=== PATIENT | female | born 1945 | race Caucasian/White ===

== ENCOUNTER → 2020-07-16 08:42 | Outpatient (BNVA) | payer MEDICARE, SELFPAY | PROVIDERS: PCP Internal Medicine; Referring Provider Internal Medicine; Visit Provider Student in an Organized Health Care Education/Training Program | DX: M79.7 Fibromyalgia (principal); Z79.1 Long term (current) use of non-steroidal anti-inflammatories (NSAID) | CPT/HCPCS: 99212 ==

== ENCOUNTER 2020-10-16 11:35 | Outpatient (REF) | payer MEDICARE, SELFPAY ==
[2020-10-16 13:12] LABS: Alanine Aminotransferase 14 U/L (0-31); Alkaline Phosphatase 89 U/L (39-117); Anion Gap 14 (12-20); Aspartate Amino Transferase 14 U/L (5-31); Bilirubin Total 0.3 mg/dL (0.0-1.0); Blood Urea Nitrogen 19 mg/dL (9-16); Calcium 9.6 mg/dL (8.4-10.2); Carbon Dioxide 26 mmol/L (22-29); Chloride 106 mmol/L (96-108); Estimated Glomerular Filt Rate > 60; Glucose Random 79 mg/dL (60-115); Potassium 4.7 mmol/l (3.3-5.1); Sodium 141 mmol/L (135-145); Total Protein 6.8 g/dL (6.5-8.0)
== END 2020-10-16 11:36 | disposition home or self-care (01) ==
LOC: HO.LAB 11:35
PROVIDERS: Visit Provider Student in an Organized Health Care Education/Training Program
DX: M79.7 Fibromyalgia (principal)
CPT/HCPCS: 36415; 80053

== ENCOUNTER → 2021-07-03 09:36 | Outpatient (BNVA) | payer MEDICARE, SELFPAY | PROVIDERS: PCP Internal Medicine; Visit Provider Nurse Practitioner Family | DX: M79.7 Fibromyalgia (principal) | CPT/HCPCS: Q3014 ==

== ENCOUNTER → 2022-06-12 10:54 | Outpatient (BNVA) | payer MEDICARE, SELFPAY | PROVIDERS: PCP Internal Medicine Gastroenterology; Visit Provider Student in an Organized Health Care Education/Training Program | DX: M79.7 Fibromyalgia (principal) | CPT/HCPCS: 99212 ==

== ENCOUNTER 2023-06-14 10:30 | Outpatient (AMB) | payer MEDICARE, SELFPAY ==
--- NOTE | 2023-06-14 10:41 | MHC.OFFVIS ---
Intake Vital Signs 06/14/23 10:54 Height 5 ft 2 in Weight 202 lb 9.677 oz BMI 37.1 BP 128/72 Blood Pressure Location Rt brachial Position Sitting Pulse 75 Pulse Source Pulse Oximeter Temp 97.2 F Temp Source Skin Pulse Oximetry (%) 93 Intake Visit Reasons: FM Intake Note: Pt seen today for FM follow up. 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 Accompanied by: Self / Same As Patient Allergies penicillin V Allergy (Unknown, Verified 06/14/23 11:00) Rash Sulfa (Sulfonamide Antibiotics) Allergy (Unknown, Verified 06/14/23 11:00) Rash Tetanus Toxoid Adsorbed Allergy (Unknown, Uncoded 06/14/23 11:00) Unknown Medication List - Last Reconciled 06/14/23 by Dannie Pfeiffer MD amitriptyline 20 mg PO BID amlodipine 5 mg PO DAILY aspirin (Adult Low Dose Aspirin) 81 mg PO DAILY citalopram 20 mg PO DAILY diclofenac sodium 1% (Voltaren) 2 grams topical QID donepezil 10 mg PO BEDTIME esomeprazole magnesium 40 mg PO DAILY linaclotide (Linzess) mcg PO memantine 10 mg PO BID mirabegron ER (Myrbetriq) 50 mg PO DAILY quetiapine 150 mg PO DAILY ropinirole 3 mg PO DAILY HPI HPI Comments History of Present Illness Details 78-year-old female with fibromyalgia returns for follow-up. Continues to have diffuse pain all the time, the majority of her pain is in her mid to lower back. She states that she was started on a medication by her psychiatrist and it helps her sleep. She does not know the name of the medication. She continues to do some light exercises at home. She stays active and [facility] to the [facility]. Initial history: This is a 77-year-old female with a past medical history of Astasia abasia, degenerative disc disease of the spine s/p lumbar surgery and fibromyalgia who was here for follow-up of fibromyalgia. Patient was on gabapentin in the past and he was stopped when patient had COVID due to elevated ammonia levels. Patient currently does not know her medications. She continues to have diffuse in her entire spine, radiating to her legs. She also has multiple areas of joint pain including her arms and chest. She has difficulty walking, has severe fatigue and stays in bed for long periods of time. She gets about 3-4 hours of deep sleep nightly and does not wake up refreshed. She thinks she snores at night. Never had a sleep study [facility] Medical History Fibromyalgia Surgical History History of lumbar surgery History of knee surgery H/O shoulder surgery H/O mastectomy History of cholecystectomy Hx of appendectomy Social History Alcohol intake: never Patient Tobacco Use Status: Never used Tobacco e-Cigarette/Vaping Use: Never Used Review of Systems Const Reports fatigue and Reports weakness Musc Reports abnormal gait, Reports arthralgias, Reports muscle weakness and Reports stiffness Skin/Breast Reports photosensitivity Neuro Reports abnormal gait and Reports weakness Endo Reports fatigue Physical Exam Vital Signs: Last Vital Signs Temp 97.2 F 06/14/23 10:54 Pulse 75 06/14/23 10:54 BP 128/72 06/14/23 10:54 Pulse Ox 93 06/14/23 10:54 BMI result Body Mass Index 37.1 Const General: cooperative, healthy appearing, comfortable and no acute distress Nutritional Appearance: obese Orientation/consciousness: patient oriented x3 Limitations: ambulation with cane HEENT Head: Yes normocephalic and Yes atraumatic Resp Effort & Inspection: normal respiratory effort and able to speak in complete sentences Auscultation: clear to auscultation bilaterally Neuro General: patient oriented x3 Extrem Other: Osteoarthritic changes of hands with no synovitis, normal nailfold capillaroscopy Numerous fibromyalgia tender points Walks with a cane with unsteady gait Positive straight leg raise test bilaterally Assessment & Plan Assessment & Plan (1) Fibromyalgia: Code(s): M79.7 - Fibromyalgia Plan: 78-year-old female with fibromyalgia returns for follow-up. Continues to be about the same. Little better overall. Sleeping better after being prescribed a medication by her psychiatrist. She does not know the name of the medication. Continues to stay active and goes to the senior center most days. the majority of her pain stems from her spine. She was told by pain management and spine surgeon that she is not a candidate for a stimulator or any further operative intervention. Patient does not know her meds. Gabapentin seems to have been discontinued due to elevated ammonia levels. Advised patient to try using [id number] Salonpas patches for her back pain. Continue to stay active. Follow-up as need Plan I spent 15 minutes reviewing patient's chart, evaluating patient, counseling patient and documenting in the chart Coding Level of Care Code Est Pt Level 3 (67465) Diagnoses Fibromyalgia M79.7
[2023-06-14 10:54] VITALS: BP 128/72; PULSE 75; TEMP 36.2; O2SAT 93; BMI 37.1
== END 2023-06-14 11:43 | disposition home or self-care (01) ==
PROVIDERS: PCP Internal Medicine Gastroenterology; Visit Provider Student in an Organized Health Care Education/Training Program
DX: M79.7 Fibromyalgia (principal)
CPT/HCPCS: 99213

== ENCOUNTER → 2023-06-14 10:30 | Outpatient (BNVA) | payer MEDICARE, SELFPAY | PROVIDERS: PCP Internal Medicine Gastroenterology; Visit Provider Student in an Organized Health Care Education/Training Program | DX: M79.7 Fibromyalgia (principal) | CPT/HCPCS: 99212 ==

== ENCOUNTER 2025-05-07 11:12 | Outpatient (AMB) | payer MEDICARE, SELFPAY ==
[2025-05-07 11:13] VITALS: BP 129/63; PULSE 74; RESP 16; O2SAT 94; BMI 34.9
--- NOTE | 2025-05-07 11:13 | MHC.OFFVIS ---
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 The back pain has been persistent since a spinal fusion surgery in 2013, performed in [place], which involved the lower back extending to the middle region. The pain is described as severe, with a current intensity of 8 out of 10, and radiates to both legs, more prominently on the left side, causing significant discomfort day and night. The patient has a history of fibromyalgia, which contributes to her overall pain experience. She has undergone knee surgery on the right side and uses a cane, wheelchair, or walker for mobility due to the exacerbation of pain with walking. The patient has been prescribed oxycodone for pain management, which she has been taking for the past two months, although it does not fully alleviate her pain. She previously tried gabapentin, but it was discontinued due to elevated ammonia levels. The patient reports that her pain is constant, burning, stabbing, and sharp, with associated numbness and tingling, affecting her daily activities and quality of life. The patient also experiences anxiety and depression, for which she consults a Psychiatrist via phone every two months. She has been living with chronic pain since her first back surgery in 1980 and has tried various therapies, including physical therapy, acupuncture, and career development coordinator, with limited relief. - Onset: Persistent since spinal fusion surgery in 2013 - Quality: Constant, burning, stabbing, sharp, numbness, tingling - Location: Lower back, radiating to both legs, more on the left - Exacerbating factors: Walking, standing - Relieving factors: None mentioned - Interference: Affects daily activities, mobility, mood, quality of life - Affect: Pain impacts mood and psychological wellbeing, contributing to anxiety and depression - Analgesia: Currently using oxycodone, pain level at 8/10, goal pain level not specified - Adverse Effects: None reported from current medication - Activities of Daily Living: Pain affects daily activities, mobility, and quality of life - Aberrant Drug Related Behaviors: None reported [facility] Medical History Fibromyalgia Surgical History History of lumbar surgery History of knee surgery H/O shoulder surgery H/O mastectomy History of cholecystectomy Hx of appendectomy Social History Alcohol intake: never Patient Tobacco Use Status: Never used Tobacco e-Cigarette/Vaping Use: Never Used Review of Systems Const Details: - Musculoskeletal: Reports chronic back pain, shoulder pain, knee pain, foot pain - Neurological: Reports numbness and tingling in legs - Psychiatric: Reports anxiety and depression - Endocrine: Denies diabetes All systems reviewed & are unremarkable except as noted in HPI and below Physical Exam Vital Signs: Last Vital Signs Pulse 74 05/07/25 11:13 Resp 16 05/07/25 11:13 BP 129/63 05/07/25 11:13 Pulse Ox 94 05/07/25 11:13 Oxygen Delivery Method Room Air 05/07/25 11:13 BMI result Body Mass Index 34.9 General: Appears afebrile. Alert and oriented. Mood and affect appropriate. Follows and participates in conversation appropriately. Respiratory effort is unlabored. No cough. Able to transition from sit to stand unassisted. Difficulty to get up from sitting to standing. Ambulates with bilaterally normal heel strike and toe off. Uses cane with ambulation. General: Yes no CVA tenderness Back/Spine/Pelvis Other: Limited lumbar ROM due to pain. Lumbar flexion and extension reproduces moderate pain. Demonstrates 5/5 strength of quadriceps bilaterally as well as flexion/dorsiflexion of bilateral feet against resistance. 2+ pedal pulses bilaterally. Straight leg rise with dorsiflexion positive bilaterally, left>right. +1 patellar and achilles reflexes bilaterally. Facet loading test positive bilaterally. Michael?s and Stinchfield tests are positive bilaterally. No groin pain with I/E hip rotations. Valsalva maneuver negative. Multiple widespread TTPs bilaterally, including upper and lower extremities. Back: no CVA tenderness Cervical Spine: cervical ROM normal, cervical muscular tenderness and No Cervical spine tenderness Thoracic/Lumbar Spine: thoracic and lumbar spine normal to inspection, Thoracic/lumbar spine scar(s), Lasegue's sign positive bilateral and diffuse, pain with thoraco-lumbar ROM, paraspinal muscle tenderness, thoraco-lumbar ROM limited, No thoracic spinal tenderness and lumbar spinal tenderness at L4 and at L5 Sacroiliac joints: bilaterally tender to palpation Results Reviewed Results Reviewed: Assessment & Plan Assessment & Plan (1) Lumbar post-laminectomy syndrome: Code(s): M96.1 - Postlaminectomy syndrome, not elsewhere classified Category: Medical (2) Fibromyalgia: Code(s): M79.7 - Fibromyalgia Category: Medical (3) Chronic low back pain: Code(s): M54.50 - Low back pain, unspecified; G89.29 - Other chronic pain Category: Medical (4) Lumbar radiculopathy: Code(s): M54.16 - Radiculopathy, lumbar region Category: Medical (5) Lumbosacral spondylosis: Code(s): M47.817 - Spondylosis without myelopathy or radiculopathy, lumbosacral region Category: Medical Plan - Schedule a Caudal epidural steroid injection with catheter, with light sedation and fluoroscopy for lumbar post-laminectomy syndrome. Expectations, risks and benefits were reviewed. Patient is aware she will be contacted to schedule this procedure. - We also discussed neuromodulation with SCS trial and implant and radiofrequency ablation procedures. - Continue current pain management with oxycodone, monitor for efficacy and side effects. - Follow up with Psychiatrist for ongoing management of anxiety and depression as scheduled. All questions and concerns have been answered and patient agreed with the plan. Follow up after injection and sooner as needed. Patient was informed and verbally consented to the use of an ambient scribe for clinic note documentation during this visit. Coding Level of Care Code New Pt Level 4 (93783) Diagnoses Lumbar post-laminectomy syndrome M96.1 Fibromyalgia M79.7 Chronic low back pain M54.50; G89.29 Lumbar radiculopathy M54.16 Lumbosacral spondylosis M47.817
--- OUTSIDE RECORDS SUMMARY | 2025-05-07 11:55 | XMS_ITS | Clinical Summary ---
Author Organization [facility] Address [address] [place] [id number] Phone Care Team Providers Care Interior Wirer Name Role Phone Reji Wilde MD Primary Care Provider [phone] Allergies Active Allergy Reactions Criticality Noted Date Comments Penicillins Rash 02/15/2014 Sulfamethoxazole-Trimethoprim Unknown 2013 Tetanus Vaccines And Toxoid Rash 02/16/20 14 Medications citalopram (CELEXA) 20 MG tablet CITALOPRAM 20 MG TABLET; Dose: 20 MG; Form: Take 1 TABLET; Route: PO; Frequency: QD; Directions: Not available; Details: Dispense: Tablet(s); Taking; Status: Active; Source: SHANDA WILDE; Date: 03/01/2014 4 Active ALPRAZolam (XANAX) 0.25 MG tablet ALPRAZOLAM 0.25 MG TABLET; Dose: 0.25 MG; Form: Take 1 TABLET; Route: PO; Frequency: BID PRN; Directions: Not available; Details: Dispense: Tablet(s); Taking; Status: Active; Source: SHANDA WILDE; Date: 03/01/2014 4 Active aspirin 81 MG EC tablet ASPIRIN BUFFERED 81 MG TABLET; Dose: 81 MG; Form: Take 1 TABLET; Route: PO; Frequency: QD; Directions: Not available; Details: Dispense: Tablet(s); Taking; Status: Active; Source: SHANDA WILDE; Date: 03/01/2014 4 Active docusate sodium (COLACE) 100 MG capsule Take 100 mg by mouth 2 (two) times a day. Active multivitamin-mi nerals-lutein (CENTRUM SILVER) Tab Take 1 tablet by mouth daily. Active acetaminophen (TYLENOL) 500 MG tablet Take 500 mg by mouth every 6 (six) hours as needed for pain (specific location in comments). Active amLODIPine (NORVASC) 5 MG tablet Take 5 mg by mouth. 4 Active amitriptyline (ELAVIL) 10 MG tablet Take 30 mg by mouth nightly at bedtime. Active famotidine (PEPCID) 20 MG tablet Take 20 mg by mouth daily. 5 Active oxyCODONE-aceta minophen (PERCOCET) 5-325 mg per tablet Take 1 tablet by mouth daily as needed. 5 Active rOPINIRole (REQUIP) 3 MG tablet Take 3 mg by mouth nightly at bedtime. Active esomeprazole (NEXIUM) 40 MG capsule See Instructions, Take 1 capsule by mouth daily., # 30 capsule, 11 Refills, Maintenance, 07/03/24 12:12:00 PM EDT, PillPack by [facility], 159, cm, 06/28/24 10:30:00 EDT, Height, 90.7, kg, 08/25/23 11:33:00 EST, Dry Weight 4 Active memantine (NAMENDA) 10 MG tablet Take 10 mg by mouth 2 (two) times a day. Active MYRBETRIQ 50 mg Tb24 Take 50 mg by mouth daily. Active QUEtiapine 150 mg Tab take one tab by mouth at bedtime Active lactulose (CONSTULOSE) 10 gram/15 mL solution Take 15 mL by mouth daily. 5 Active donepeziL (ARICEPT) 10 MG tablet 10 mg daily. Active Active Problems Problem Noted Date Diagnosed Date Intractable abdominal pain 01/24/2025 Constipation 01/24/2025 Internal hemorrhoids without complication 2024 Abdominal bloating 01/24/2025 Degeneration of lumbar intervertebral disc 03/19 Overview (11/16/2014): Degeneration of lumbar intervertebral disc; intervertebral disc, Lumbar/Lumbosacral Disc Degeneration Kyphoscoliosis deformity of spine 03/19/2014 Overview (11/16/2014): Kyphoscoliosis deformity of spine; scoliosis, (and kyphoscoliosis), idiopathic Difficulty in walking 03/01/2014 Overview (11/16/2014): Walking disability Spinal stenosis 03/01/2014 Overview (11/16/2014): Spinal stenosis Encounters Date Type Department Care Team Description 04/09/2025 8:11 AM EDT Anesthesia Event [facility] Endoscopy Department [address] [place] [id number] Bradley Soler MD DirrFatmata NP 04/09/2025 8:10 AM EDT - 04/09/2025 8:50 AM EDT Surgery [facility] Endoscopy Department [address] [place] [id number] Stella Callejas MD, MPH COLONOSCOPY 04/09/2025 6:40 AM EDT - 04/09/2025 9:47 AM EDT Hospital Encounter [facility] Endoscopy Department [address] [place] [address] Stella Callejas MD, MPH Discharge Disposition: Home or Self Care 04/09/2025 Procedure Pass [facility] Endoscopy Department [address] [place] [address] 04/02/2025 4:00 PM EDT Pre-Admission Testing [address] [place] [address] Stella Callejas MD, MPH 02/20/2025 Telephone [facility] [address] [place], [place] [address] [place] [address] Reji Wilde MD 3 day urgent/schedule coordinator from Last 3 Months Immunizations Immunization Administration Dates Next Due Influenza, Unspecified Formulation 07/07(Deferred: Patient Decision - , Ordered By: [id number]) Pneumococcal polysaccharide PPSV23 02/17/2014 Pneumococcal, Unspecified Formulation (Deferred: Other - , Ordered By: [id number]) Social History Tobacco Use Types Packs/Day Years Used Date Smoking Tobacco: Former Passive Smoke Exposure: Past Smokeless Tobacco: Never Tobacco Cessation:Counseling Given: Not Answered Alcohol Use Standard Drinks/Week Comments Never 0 (1 standard drink = 0.6 oz pur e alcohol) Education Answer Date Recorded Are you interested in more education? Not on gustabo e 01/22/2023 Are you concerned about learning? Not on file 01/22/2023 No 01/22/2023 No 01/22/2023 Digital Access Answer Date Recorded No 02/22/2023 No 02/22/2023 Reliable internet access at home? Not on file 02/22/2023 Device with a working camera? Not on file Intimate Partner Violence Answer Date R ecorded Are you denied basic needs s uch as food, clothing, or medical care? No 04/09/2025 In the past 12 months have y ou been in a relationship with a person who hurts, threatens, or tries to control you? No 04/09/2025 Are you denied basic needs s uch as food, clothing, or medical care? No 04/09/2025 In the past 12 months have y ou been in a relationship with a person who hurts, threatens, or tries to control you? No 04/09/2025 Comments No Sex and Gender Information Value Date Recorded Sex Assigned at Not on file Legal Sex Female 3:19 PM EDT Gender Identity Not on file Sexual Orientation Not on file Last Filed Vital Signs Vital Sign Reading Time Taken Comments Blood Pressure 147/67 04/09/2025 9:40 AM EDT Pulse 64 04/09/2025 9:40 AM EDT Temperature 36.7 C (98.1 F) 04/09/2025 7:45 AM EDT Respiratory Rate 23 04/09/2025 9:40 AM EDT Oxygen Saturation 98% 04/09/2025 9:40 AM EDT Inhaled Oxygen Concentration - - Weight 85.7 kg (189 lb) 04/02/2025 3:47 PM EDT Height 157.5 cm (5' 2 ) 04/02/2025 3:47 PM EDT Body Mass Index 34.57 04/02/2025 3:47 PM EDT Plan of Treatment Upcoming Encounters Date Type Department Care Team (Late st Contact Info) Description 07/06/2025 12:30 PM EDT Office Visit [facility] [address] [place] [address] Thuy Kamara MBBS [address] [facility] Neurology Dept., 4th [place] [address] [email or web address] 08/06/2025 10:20 AM EST Telemedicine [facility] [address] [facility] [place] [address] Marielena Foster MD [address] [place] [address], [place] [address] [email or web address] Health Maintenance Due Date Last Done Comments LIPID PANEL 1945 DEPRESSION SCREENING 1958 SMOKING Hx and SMOKELESS TOBACCO SCREENING 1959 HEPATITIS C SCREENING 01/05/1964 ZOSTER VACCINES (1 of 2) 01/05/1996 OSTEOPOROSIS SCREENING INITIAL (ONE-TIME) 2011 PNEUMOCOCCAL VACCINES (50+ years) (2 of 2 - PCV) 02/17/2015 02/17/2014 RSV VACCINE (1 - 1-dose 75+ series) 2021 COVID-19 VACCINE ( season) 2024 06/23/2024, 07/30/2023, 06/26/2022, Additional history exists HEPATITIS A VACCINES Aged Out No long er eligible based on patient's age to complete this topic HIB VACCINES Aged Out No longer eligi ble based on patient's age to complete this topic MENINGOCOCCAL VACCINES (ACWY) Aged Out No longer eligible based on patient's age to complete this topic MENINGOCOCCAL VACCINES (B) Aged Out N o longer eligible based on patient's age to complete this topic Medical Devices Implanted Type Area Accounting Support Specialist Device Identifier Shelf Expiration Date Model / Serial / Lot Back Octavio Procedures Procedure Name Priority Date/Time Associated Diagnosis Comments ESOPHAGOGASTRODUODENOSCOPY 04/09 8:11 AM EDT Constipation, unspecified constipation type Intractable abdominal pain Special Needs 04/04/25 called pt, confirmed 04/09 EGD/CLS appt. Resent Golytely prep via instructions. dr5/1/25 inbskt (pt declined 01/31 at [facility] & 03/27 at [facility]) Golytely prep mailed-jjr 01/24 inbasket- triage all locs. kb COLONOSCOPY 04/09/2025 8:11 AM EDT Constipation, unspecified constipation type Intractable abdominal pain Special Needs 04/04/25 called pt, confirmed 04/09 EGD/CLS appt. Resent Golytely prep via instructions. 01/25/25 inbskt (pt declined 01/31 at [facility] & 03/27 at [facility]) Golytely prep mailed-jjr 01/24 inbasket- triage all locs. kb ENDOSCOPY PROCEDURE 04/09/2025 8:06 AM EDT ENDOSCOPY, COLON 04/09/2025 8:02 AM EDT ANATOMIC PATHOLOGY Routine 04/09/2025 12:00 AM EDT from Last 3 Months Results * ENDOSCOPY PROCEDURE (04/09/2025 8:06 AM EDT) 04/09/2025 8:06 AM EDT Narrative Transcriptions Stella Callejas MD, MPH - 04/09/2025 8:06 AM EDT [facility] Gastroenterology Patient Name: Carla Dan Procedure Date: 04/09/2025 8:06 AM Date of : 1945 Admit Type: Outpatient Age: 80 Room: 7 Gender: Female Note Status: Finalized Attending MD: Stella Callejas MD, Instrument Name: [id number] Procedure: Upper GI endoscopy Indications: Regurgitation Patient Profile: This is a 80 year old female. Refer to note in patient chart for documentation of history and physical. Providers: Stella Callejas MD Referring MD: Reji Wilde (Referring MD) Medicines: Monitored Anesthesia Care Complications: No immediate complications. Procedure: After informed consent was obtained, the endoscope was passed under direct vision. Throughout the procedure, the patient's blood pressure, pulse, and oxygen saturations were monitored continuously. The Endoscope was introduced through the mouth, and advanced to the second part of duodenum. The upper GI endoscopy was accomplished without difficulty. The patient tolerated the procedure well. Findings: A non-obstructing Schatzki ring was found at the gastroesophageal junction. A large hiatal hernia was present. Multiple sessile fundic gland polyps were found in the cardia, in the gastric fundus and in the gastric body. Biopsies were taken with a cold forceps for histology. Verification of patient identification for the specimen was done. Estimated blood loss was minimal. The examined duodenum was normal. Impression: - Non-obstructing Schatzki ring. - Large hiatal hernia. - Multiple fundic gland polyps. Biopsied. - Normal examined duodenum. Recommendation: - Discharge patient to home. - Patient has a contact number available for emergencies. The signs and symptoms of potential delayed complications were discussed with the patient. Return to normal activities tomorrow. Written discharge instructions were provided to the patient. - Return to referring physician as previously scheduled. Stella Callejas MD [id number] Stella Callejas MD 04/09/2025 8:31:53 AM This report has been signed electronically. Number of Addenda: 0 Note Initiated On: 04/09/2025 8:06 AM Reji Wilde MD GI PROCEDURE ORDERABLES Fi nal Result * ENDOSCOPY, COLON (04/09/2025 8:02 AM EDT) 04/09/2025 8:02 AM EDT Narrative Transcriptions Stella Callejas MD, MPH - 04/09/2025 8:02 AM EDT [facility] Gastroenterology Patient Name: Carla Dan Procedure Date: 04/09/2025 8:02 AM Date of : 1945 Admit Type: Outpatient Age: 80 Room: 7 Gender: Female Note Status: Finalized Attending MD: Stella Callejas MD, Instrument Name: [id number] Procedure: Colonoscopy Indications: Constipation Patient Profile: This is a 80 year old female. Refer to note in patient chart for documentation of history and physical. Providers: Stella Callejas MD, TONO FAY RN Referring MD: Reji Wilde (Referring MD) Medicines: Monitored Anesthesia Care Complications: No immediate complications. Procedure: After informed consent was obtained, the scope was passed under direct vision. Throughout the procedure, the patient's blood pressure, pulse, and oxygen saturations were monitored continuously. The Colonoscope was introduced through the anus and advanced to the cecum, identified by appendiceal orifice and ileocecal valve. The colonoscopy was performed without difficulty. The patient tolerated the procedure well. The quality of the bowel preparation was adequate to identify polyps greater than 5 mm in size and fair. Findings: The perianal examination was normal. Multiple diverticula were found in the left colon. Non-bleeding internal hemorrhoids were found during retroflexion. The hemorrhoids were small. The exam was otherwise without abnormality on direct and retroflexion views. Impression: - Preparation of the colon was fair. - Diverticulosis in the left colon. - Non-bleeding internal hemorrhoids. - The examination was otherwise normal on direct and retroflexion views. - No specimens collected. Recommendation: - Discharge patient to home. - Patient has a contact number available for emergencies. The signs and symptoms of potential delayed complications were discussed with the patient. Return to normal activities tomorrow. Written discharge instructions were provided to the patient. - Return to referring physician as previously scheduled. Stella Callejas MD [id number] Stella Callejas MD 04/09/2025 9:07:17 AM This report has been signed electronically. Number of Addenda: 0 Note Initiated On: 04/09/2025 8:02 AM us Reji Wilde MD GI PROCEDURE ORDERABLES Fi nal Result * Anatomic Pathology (04/09/2025 12:00 AM EDT) 04/09/2025 04/09/2025 Narrative [facility] - 04/16/2025 5:41 PM EDT CASE: [id number] PATIENT: CARLA DAN Date: 1945 Sex: Female [facility] Department of Pathology [address] [place] [address] CLIA License No.: [id number] Solar Energy Consultant And Designer: Dr. Cristopher Mccollum M.D., Ph.D. Physician: STELLA CALLEJAS MD, MPH Procedure Date: 04/09/2025 Resident: Kamron Prieto MD Pathologist: Cristopher Mccollum M.D., Ph.D. PATHOLOGIC DIAGNOSIS: A. GASTRIC POLYPS X 2: Fundic gland polyp(x2). CLINICAL DATA: History: Constipation, unspecified constipation type, intractable abdominal pain. Operation: Colonoscopy, esophagogastroduodenoscopy. Operative Findings: None provided. Clinical Diagnosis: None provided. TISSUE SUBMITTED: A/1. Gastric polyps x 2 GROSS DESCRIPTION: The specimen is received in 1 part, labeled with the patient's name and medical record number. Part A received in formalin labeled Gastric polyps x 2 consists of 2 fragments of irregular oliveira-pink soft tissue (0.4 and 0.5 cm in greatest dimension). The specimen is submitted in toto. A1: 2 fragments Dictated by: Kirsten Toledo By his/her signature below, the senior physician certifies that he/she personally conducted a microscopic examination ( gross only exam if so stated) of the described specimen(s) and rendered or confirmed the diagnosis(es) related thereto. Final Diagnosis by Cristopher Mccollum M.D., Ph.D., Electronically signed on Wednesday April 16, 2025 at 05:41:27PM Stella Callejas MD, MPH PATHOLOGY ORDERABLES Melanie dent Result Performing Organization Address City/State/[facility] Co de Phone Number [facility] [address] [place] [phone] from Last 3 Months Insurance [facility] SNP MEDICARE REPLACEMENT MEDICARE PART A & B MEDICARE REPLACEMENT MEDICARE PART A & B [facility] [place] [phone] MEDICARE PART A & B SNP MEDICARE REPLACEMENT MEDICARE PART A & B [facility] SNP MEDICARE REPLACEMENT MEDICARE PART A & B [facility] MEDICARE REPLACEMENT MEDICARE PART A & B Care Teams Interior Wirer Relationship Specialty Start Date End Date Reji iWlde MD [address] [place] [id number] PCP - General Internal Medicine 01/01/25 Additional Source Comments The information contained in this document represents components of the legal health record. It is not the complete legal health record.[facility]
--- OUTSIDE RECORDS SUMMARY | 2025-05-07 11:55 | XMS_ITS | Clinical Summary ---
Author Organization [facility] Address [address] [place] [address] Care Team Providers Care Stock Lifter Name Role Phone Unavailable Primary Care Provider Unavailabl e Immunizations Name Administration Dates Next Due Pfizer SARS-CoV-2 COVID-19, mRNA, LNP-S, preservative free 07/24/2021,01/09/2021,12/18/2020 Surgical History Surgery Date Site/Laterality Comments BREAST SURGERY PROCEDURE:BREAST SURGERY CHOLECYSTECTOMY PROCEDURE:CHOLECYSTECTOMY BACK SURGERY PROCEDURE:BACK SURGERY;COMMENT:x2 1981 and 2014- fusion APPENDECTOMY PROCEDURE:APPENDECTOMY KNEE SURGERY PROCEDURE:KNEE SURGERY Medical History Medical History Date Comments Cancer (CMS/HCC V24, CMS/HCC V28) DX:Cancer (HCC) Hypertension DX:Hypertension Family History Medical History Relation Name Comments Lung cancer Brother Lung cancer Father Relation Name Status Comments Brother Father Social History Tobacco Use Types Packs/Day Years Used Date Smoking Tobacco: Former Smokeless Tobacco: Never Alcohol Use Standard Drinks/Week Comments Yes 0 (1 standard drink = 0.6 oz pur e alcohol) Comments Unknown Sex and Gender Information Value Date Recorded Sex Assigned at Not on file Legal Sex Female 5:16 AM EST Gender Identity Not on file Sexual Orientation Not on file Obstetrics History Plan of Treatment Health Maintenance Due Date Last Done Comments DTaP,Tdap,and Td Vaccines (1 - Tdap) 1965 Pneumococcal Vaccine: 50+ Years (1 of 1 - PCV) 01/05/1996 Zoster Vaccines (1 of 2) 01/05/1996 RSV Immunization Adult Patients (1 - 1-dose 75+ series) 2021 Falls Risk Assessment 08/30/2022 Hepatitis C Screening 08/30/2022 Osteoporosis Screening (Bone Density Screening) 08/30/2022 Social Influencers of Health Screening 08/30/2022 COVID-19 Vaccine (2023-2 5 season) 2024 07/24/2021, 01/09/2021, 12/18/2020 Depression Screening 09/27/2024 Influenza Vaccine (#1) 2025 HIB Vaccines Aged Out No longer eligi ble based on patient's age to complete this topic HPV Vaccines Aged Out No longer eligi ble based on patient's age to complete this topic Hepatitis A Vaccines Aged Out No long er eligible based on patient's age to complete this topic Hepatitis B Vaccines Aged Out No long er eligible based on patient's age to complete this topic IPV Vaccines Aged Out No longer eligi ble based on patient's age to complete this topic MMR Vaccines Aged Out No longer eligi ble based on patient's age to complete this topic Meningococcal ACWY Vaccine Aged Out N o longer eligible based on patient's age to complete this topic Meningococcal B Vaccine Aged Out No l onger eligible based on patient's age to complete this topic RSV Immunization Patients Under 20 months Aged Out No longer eligible b ased on patient's age to complete this topic Varicella Vaccines Aged Out No longer eligible based on patient's age to complete this topic
--- OUTSIDE RECORDS SUMMARY | 2025-05-07 11:55 | XMS_ITS | Clinical Summary ---
Author Organization [facility] Address [address] [place] [address] Care Team Providers Care Grading Supervisor Name Role Phone Unavailable Primary Care Provider Unavailabl e Allergies Active Allergy Reactions Criticality Noted Date Comments Sulfamethoxazole-Trimethoprim 2023 Penicillins 11/06/2023 Tetanus Toxoid 11/06/2023 Medications Medication Sig Dispensed Refills Start Date End Date Status rOPINIRole (REQUIP) 3 MG tablet Take 1 tablet (3 mg total) by mouth 2 (two) times a day. 0 Active memantine (NAMENDA) 10 MG tablet Take 1 tablet (10 mg total) by mouth 2 (two) times a day. 0 Active aspirin EC 81 MG tablet Take 1 tablet (81 mg total) by mouth daily. 0 Active amLODIPine (NORVASC) tablet 5 mg Take 1 tablet (5 mg total) by mouth daily. 0 Active esomeprazole (NexIUM) 40 MG capsule Take 1 capsule (40 mg total) by mouth every morning before breakfast. 0 Active lactulose (CEPHULAC) 20 GM/30ML solution Take 30 mL (20 g total) by mouth daily. 0 Active amitriptyline (ELAVIL) 10 MG tablet Take 3 tablets (30 mg total) by mouth every night at bedtime. 0 Active Active Problems Problem Noted Date Diagnosed Date Urine incontinence 11/06/2023 Bilateral leg weakness 11/06/2023 Family History Medical History Relation Name Comments Lung cancer Brother Lung cancer Father Relation Name Status Comments Brother Father Social History Tobacco Use Types Packs/Day Years Used Date Smoking Tobacco: Former Cigarettes Smokeless Tobacco: Never Tobacco Cessation:Counseling Given: Not Answered Alcohol Use Standard Drinks/Week Comments Yes 0 (1 standard drink = 0.6 oz pur e alcohol) rare Sex and Gender Information Value Date Recorded Sex Assigned at Female 11/05/2023 9:33 PM EST Gender Identity Not on file Sexual Orientation Not on file Job Start Date Occupation Industry Not on file Not on file Not on file Last Filed Vital Signs Vital Sign Reading Time Taken Comments Blood Pressure 113/58 11/11/2023 2:48 PM EST Pulse 83 11/11/2023 2:48 PM EST Temperature 36.9 C (98.4 F) 11/11/2023 2:48 PM EST Respiratory Rate 18 11/11/2023 2:48 PM EST Oxygen Saturation 97% 11/11/2023 2:48 PM EST Inhaled Oxygen Concentration - - Weight 102.1 kg (225 lb 1.4 oz) 11/06/2023 9:35 AM EST Height 157.5 cm (5' 2 ) 11/06/2023 9:35 AM EST Body Mass Index 41.17 11/06/2023 9:35 AM EST Plan of Treatment Health Maintenance Due Date Last Done Comments Hepatitis C Screening 1945 Depression Screening 1958 BMI Counseling 01/05/1964 Preventative Health Evaluation 01/05/1964 DTap / Tdap / Td (1 - Tdap) 1965 Shingrix-Zoster Vaccine (1 of 2) 01/05/1996 Fall Risk Assessment 2011 Osteoporosis Screening (DEXA Scan) 2011 Pneumococcal Vaccine (2 of 2 - PCV) 02/17/2015 02/17/2014 RSV Adult > 60+ Yrs or (1 - 1-dose 75+ series) 2021 COVID-19 Vaccine ( - season) 2024 06/26/2022, 07/24/2021, 01/09/2021, Additional history exists Influenza Vaccine (#1) 2025 2, 06/26/2022, 06/28/2021, Additional history exists Hepatitis B Vaccines Aged Out No long er eligible based on patient's age to complete this topic RSV Ped < 20 months Aged Out No longe r eligible based on patient's age to complete this topic Advance Directives For more information, please contact: [phone] Latest Code Status on File Code Status Date Activated Date Inactivated Comments Full Code 11/06/2023 5:27 AM 11/11/2023 10:35 PM This code status was ascertained in the following way: discussion with patient .
== END 2025-05-07 11:45 | disposition home or self-care (01) ==
PROVIDERS: PCP Internal Medicine; Visit Provider Nurse Practitioner Family
DX: M96.1 Postlaminectomy syndrome, not elsewhere classified (principal); M79.7 Fibromyalgia; M54.50 Low back pain, unspecified; G89.29 Other chronic pain; M54.16 Radiculopathy, lumbar region; M47.817 Spondylosis without myelopathy or radiculopathy, lumbosacral region
CPT/HCPCS: 99204

== ENCOUNTER → 2025-05-07 11:12 | Outpatient (BNVA) | payer MEDICARE, SELFPAY | PROVIDERS: PCP Internal Medicine; Visit Provider Nurse Practitioner Family | DX: M96.1 Postlaminectomy syndrome, not elsewhere classified (principal); M79.7 Fibromyalgia; M54.50 Low back pain, unspecified; M54.16 Radiculopathy, lumbar region; M47.817 Spondylosis without myelopathy or radiculopathy, lumbosacral region; G89.29 Other chronic pain | CPT/HCPCS: 99202 ==

== ENCOUNTER 2025-05-18 12:03 | Outpatient (REF) | payer OTHER, SELFPAY | END 2025-05-18 12:04 | disposition home or self-care (01) | LOC: CF 12:03 | DX: Z13.89 Encounter for screening for other disorder (principal) ==

== ENCOUNTER 2025-08-03 11:43 | Day surgery (SDC) | payer OTHER, SELFPAY ==
--- OUTSIDE RECORDS SUMMARY | 2025-07-20 13:55 | XMS_ITS | Clinical Summary ---
Author Organization [facility] Address [address] [place] [address] Care Team Providers Care Retail And Restaurant Associate Name Role Phone Unavailable Primary Care Provider [...] series) 2021 COVID-19 Vaccine ( - season) 2025 06/26/2022, 07/24/2021, 01/09/2021, Additional history exists Influenza Vaccine (#1) 2025 2, 06/26/2022, 06/28/2021, Additional history exists Hepatitis B Vaccines Aged Out No long er eligible based on patient's age to complete this topic RSV Ped < 20 months Aged Out No longe r eligible based on patient's age to complete this topic Advance Directives For more information, please contact: [phone] Latest Code Status on File Code Status Date Activated Date Inactivated Comments Full Code 11/06/2023 5:27 AM 11/11/2023 10:35 PM This code status was ascertained in the following way: discussion with patient .
--- OUTSIDE RECORDS SUMMARY | 2025-07-20 13:55 | XMS_ITS | Encounter Summary ---
Author Organization [facility] Address [address] [facility] [address] [place] [phone] Phone Care Team Providers Care Sight Effects Specialist Name Role Phone Reji Wilde MD Primary Care Provider +1- [phone] Encounter Details Date Type Department Care Team (Late st Contact Info) Description 01/24/2025 Procedure Pass [facility] [address] [place] [address] Social History Tobacco Use Types Packs/Day Years Used Date Smoking Tobacco: Former Passive Smoke Exposure: Past Smokeless Tobacco: Never Education Answer Date Recorded Are you interested in more education? Not on gustabo e 01/22/2023 Are you concerned about learning? Not on file 01/22/2023 No 01/22/2023 No 01/22/2023 Digital Access Answer Date Recorded No 02/22/2023 No 02/22/2023 Reliable internet access at home? Not on file 02/22/2023 Device with a working camera? Not on file Comments Unknown Sex and Gender Information Value Date Recorded Sex Assigned at Not on file Legal Sex Female 3:19 PM EDT Gender Identity Not on file Sexual Orientation Not on file documented as of this encounter Plan of Treatment Upcoming Encounters Date Type Department Care Team (Late Contact Info) Description 08/06/2025 10:20 AM EST Telemedicine [facility] Specialties [address] [facility] [place] [address] Marielena Foster MD [address] [facility], [facility] [place] [address] [email or web address] documented as of this encounter Visit Diagnoses Not on filedocumented in this encounter Care Teams Sight Effects Specialist Relationship Specialty Start Date End Date Reji Wilde MD [address] [place] [phone] PCP - General Internal Medicine 01/01/25 documented as of this encounter Additional Source Comments The information contained in this document represents components of the legal health record. It is not the complete legal health record.[facility]
--- OUTSIDE RECORDS SUMMARY | 2025-07-20 13:55 | XMS_ITS | Encounter Summary ---
Author Organization [facility] Address [address] [facility] [address] [place] [id number] Phone Care Team Providers Care District Engineer Name Role Phone Reji Wilde MD Primary Care Provider +1- [phone] Encounter Details Date Type Department Care Team (Late st Contact Info) Description 04/09/[address] [facility] Endoscopy Department [address] [place] [id number] Social History Tobacco Use Types Packs/Day Years Used Date Smoking Tobacco: Former Passive Smoke Exposure: Past Smokeless Tobacco: Never Alcohol Use Standard Drinks/Week Comments Never 0 [...] Care Team (Late st Contact Info) Description 08/06/2025 10:20 AM EST Telemedicine [facility] [address] [facility] [place] [address] Marielena Foster MD [address] [facility], [place] [address] [email or web address] documented as of this encounter Visit Diagnoses Not on filedocumented in this encounter Care Teams District Engineer Relationship Specialty Start Date End Date Reji Wilde MD [address] [place] [id number] PCP - General Internal Medicine 01/01/25 documented as of this encounter Additional Source Comments The information contained in this document represents components of the legal health record. It is not the complete legal health record.[facility]
--- OUTSIDE RECORDS SUMMARY | 2025-07-20 13:55 | XMS_ITS | Clinical Summary ---
Author Organization [facility] Address [address] [place] [id number] Phone Care Team Providers Care Weigh Machine Operator Name Role Phone Reji Wilde MD Primary Care Provider +1- [phone] Allergies Active Allergy Reactions Criticality Noted Date [...] Maintenance, 07/03/24 12:12:00 PM EDT, PillPack by [facility], 159, cm, 06/28/24 10:30:00 EDT, Height, [...] Spinal stenosis 03/01/2014 Overview (11/16/2014): Spinal stenosis Immunizations Immunization Administration Dates Next Due Influenza, Unspecified Formulation 07/07(Deferred: Patient Decision - , Ordered By: [id number]) Pneumococcal polysaccharide PPSV23 02/17/2014 Pneumococcal, Unspecified Formulation (Deferred: Other - , Ordered By: [id number]) Social History Tobacco Use Types Packs/Day Years [...] Info) Description 08/06/2025 10:20 AM EST Telemedicine [facility] Medical Specialties [address] [place] [phone] Marielena Foster MD [address] [place] [phone] [email or web address] Due Date Last Done Comments LIPID PANEL 1946 DEPRESSION SCREENING 1958 SMOKING Hx and SMOKELESS TOBACCO SCREENING 1959 HEPATITIS C SCREENING 01/05/1964 ZOSTER VACCINES (1 of 2) 01/05/1996 OSTEOPOROSIS SCREENING INITIAL (ONE-TIME) 2011 PNEUMOCOCCAL VACCINES (50+ years) (2 of 2 - PCV) 02/17/2015 02/17/2014 RSV VACCINE (1 - 1-dose 75+ series) 2021 INFLUENZA VACCINE (#1) 2025 , 07/30/2023, 06/26/2022, Additional history exists COVID-19 VACCINE ( season) 2025 06/23/2024, 07/30/2023, 06/26/2022, Additional history exists HEPATITIS [...] this topic Medical Devices Implanted Type Area Parking Ramp Attendant Device Identifier Shelf Expiration Date Model / Serial / Lot Back [employer] [facility] MEDICARE REPLACEMENT MEDICARE PART A & B [facility] MEDICARE REPLACEMENT MEDICARE PART A & B MEDICARE PART A & [place] [address] [place] [address] MEDICARE REPLACEMENT MEDICARE PART A & B MEDICARE REPLACEMENT MEDICARE PART A & B MEDICARE REPLACEMENT MEDICARE PART A & B Care Teams Weigh Machine Operator Relationship Specialty Start Date End Date Reji Wilde MD [address] [place] [id number] PCP - General Internal Medicine 01/01/25 Additional Source Comments The information contained in this document represents components of the legal health record. It is not the complete legal health record.[facility]
--- OUTSIDE RECORDS SUMMARY | 2025-07-20 13:55 | XMS_ITS | Clinical Summary ---
Author Organization [facility] ity Address [address] [place] [address] Care Team Providers Care Sql Server Dba Developer Name Role Phone Unavailable Primary Care Provider Unavailabl e Immunizations Immunization Administration Dates Next Due Pfizer SARS-CoV-2 COVID-19, [...] 08/30/2022 Social Influencers of Health Screening 08/30/2022 Depression Screening 09/27/2024 COVID-19 Vaccine (4 - 2024-2 6 season) 2025 07/24/2021, 01/09/2021, 12/18/2020 Influenza Vaccine (#1) 2025 HIB Vaccines Aged [...]
--- NOTE | 2025-07-24 14:03 | HO.ANESPROP2 ---
Documented by User: Kamila Pool NP 07/24/25 14:11 HPI - Anesthesia Eval Consult details Narrative: 80 yr old female for Caudal Epidural Steroid Injection with catheter s/p upper endoscopy with MAC 03/2025 [facility] Active Problems Active Problems: All Active Problems Lumbosacral spondylosis (Acute) Lumbar radiculopathy (Acute) Chronic low back pain (Acute) Lumbar post-laminectomy syndrome (Acute) intermodal truck driver (current) use of non-steroidal anti-inflammatories (nsaid) (Acute) Fibromyalgia (Acute) Past Medical History Medical History Urinary incontinence Memory loss Chronic pain Astasia-abasia Anxiety Depression Lumbar spondylosis GERD (gastroesophageal reflux disease) HTN (hypertension) Fibromyalgia Surgical History Surgical History History of esophagogastroduodenoscopy (EGD) History of lumbar surgery History of knee surgery H/O shoulder surgery H/O mastectomy History of cholecystectomy Hx of appendectomy Social History Social History Are you a primary landcare officer to a significant other at home: No Do you presently have visiting nurse or other home services: No Alcohol intake: never Patient Tobacco Use Status: Never used Tobacco e-Cigarette/Vaping Use: Never Used Second Hand Smoke Exposure: No Use of substances other than those prescribed or required for medical reasons: No Have you been hit, kicked, punched, or otherwise hurt by someone within the past year? If so, by whom?: No Are you DNR?: No Advance Directives: No Advance Directives Information Provided: Yes Advance Directives on File: No Patient : No : No Meds Allergies Allergy/AdvReac Type Severity Reaction Status Date / Time penicillin V Allergy Intermediate Rash Verified 07/25/25 13:10 Sulfa (Sulfonamide Allergy Intermediate Rash Verified 07/25/25 13:10 Antibiotics) Tetanus Toxoid Adsorbed Allergy Unknown Unknown Uncoded 06/14/23 11:00 Home Medications ?Medication ?Instructions ?Recorded ?Confirmed ?Last Taken ?Type aspirin 81 mg tablet,delayed 81 mg PO DAILY 07/16/20 07/25/25 Unknown History release (Adult Low Dose Aspirin) diclofenac sodium 1 % topical gel 2 g topical QID 07/16/20 06/14/23 Unknown History (Voltaren) donepezil 10 mg tablet 10 mg PO BEDTIME 07/16/20 07/25/25 Unknown History mirabegron 50 mg tablet,extended 50 mg PO DAILY 07/16/20 07/25/25 Unknown History release 24 hr (Myrbetriq) amlodipine 5 mg tablet 5 mg PO DAILY 06/12/22 07/25/25 Unknown History citalopram 20 mg tablet 20 mg PO DAILY 06/12/22 07/25/25 Unknown History esomeprazole magnesium 40 mg 40 mg PO DAILY 06/12/22 07/25/25 Unknown History capsule,delayed release memantine 10 mg tablet 10 mg PO BID 06/12/22 07/25/25 Unknown History amitriptyline 10 mg tablet 20 mg PO BID 06/14/23 07/25/25 Unknown History quetiapine 150 mg tablet 150 mg PO DAILY 06/14/23 07/25/25 Unknown History ropinirole 3 mg tablet 3 mg PO DAILY 06/14/23 06/14/23 Unknown History clonidine HCl 0.1 mg tablet 0.1 mg PO BEDTIME PRN Anxiety 05/07/25 07/25/25 Unknown History famotidine 20 mg tablet 20 mg PO DAILY 05/07/25 07/25/25 Unknown History Exam Pertinent Lab Results Pertinent Lab Results: [facility] [place] [facility] labs 12/2024 CBC WBC 8.21 RBC 4.77 Hgb 12.9 Hct 42.1 Plt 288 CMP sodium 141 potassium 4.6 BUN 17 creat 0.96 glucose 81 Documented by User: Ross Torres MD 08/03/25 14:45 [facility] Past Medical History Medical History Urinary incontinence Memory loss Chronic pain Astasia-abasia Anxiety Depression Lumbar spondylosis GERD (gastroesophageal reflux disease) HTN (hypertension) Fibromyalgia Family History Family history of problems with anesthesia: No Surgical History Surgical History History of esophagogastroduodenoscopy (EGD) History of lumbar surgery History of knee surgery H/O shoulder surgery H/O mastectomy History of cholecystectomy Hx of appendectomy History of Problems with Anesthesia: No Social History Social History Are you a primary landcare officer to a significant other at home: No Do you presently have visiting nurse or other home services: No Alcohol intake: never Patient Tobacco Use Status: Never used Tobacco e-Cigarette/Vaping Use: Never Used Second Hand Smoke Exposure: No Use of substances other than those prescribed or required for medical reasons: No Have you been hit, kicked, punched, or otherwise hurt by someone within the past year? If so, by whom?: No Are you DNR?: No Advance Directives: No Advance Directives Information Provided: Yes Advance Directives on File: No Patient : No : No Meds Allergies Allergy/AdvReac Type Severity Reaction Status Date / Time penicillin V Allergy Intermediate Rash Verified 07/25/25 13:10 Sulfa (Sulfonamide Allergy Intermediate Rash Verified 07/25/25 13:10 Antibiotics) Tetanus Toxoid Adsorbed Allergy Unknown Unknown Uncoded 06/14/23 11:00 Home Medications ?Medication ?Instructions ?Recorded ?Confirmed ?Last Taken ?Type aspirin 81 mg tablet,delayed 81 mg PO DAILY 07/16/20 07/25/25 Unknown History release (Adult Low Dose Aspirin) diclofenac sodium 1 % topical gel 2 g topical QID 07/16/20 06/14/23 Unknown History (Voltaren) donepezil 10 mg tablet 10 mg PO BEDTIME 07/16/20 07/25/25 Unknown History mirabegron 50 mg tablet,extended 50 mg PO DAILY 07/16/20 07/25/25 Unknown History release 24 hr (Myrbetriq) amlodipine 5 mg tablet 5 mg PO DAILY 06/12/22 07/25/25 Unknown History citalopram 20 mg tablet 20 mg PO DAILY 06/12/22 07/25/25 Unknown History esomeprazole magnesium 40 mg 40 mg PO DAILY 06/12/22 07/25/25 Unknown History capsule,delayed release memantine 10 mg tablet 10 mg PO BID 06/12/22 07/25/25 Unknown History amitriptyline 10 mg tablet 20 mg PO BID 06/14/23 07/25/25 Unknown History quetiapine 150 mg tablet 150 mg PO DAILY 06/14/23 07/25/25 Unknown History ropinirole 3 mg tablet 3 mg PO DAILY 06/14/23 06/14/23 Unknown History clonidine HCl 0.1 mg tablet 0.1 mg PO BEDTIME PRN Anxiety 05/07/25 07/25/25 Unknown History famotidine 20 mg tablet 20 mg PO DAILY 05/07/25 07/25/25 Unknown History Exam Exam Date and Time: 08/03/2025 Airway Mallampati Class: II TM Dist: >3cm Neck ROM: Full Heart: rrr Lungs: ctab vesicular Assessment and Plan Assessment Anesthesia Assessment: Anesthesia Plan Discussed and Chart Reviewed Final Anesthetic Review Family History of Problems with Anesthesia: No History of Problems with Anesthesia: No NPO: Yes ASA Class: III Final Preanesthetic Review: No Changes in Pt Med Stat, Meds/Allgs Chart Reviewed, Consent Obtained/Reviewed and Anes Risks/Benef Reviewed Patient Risk: Low Procedure Risk: Low Anesthetic Plan Anesthetic Plan: MAC: Disposition: Standard PACU
[2025-07-25 13:19] VITALS: BMI 34.9
--- NOTE | ~2025-08-03 | FL_ITS ---
EXAMINATION: XR FLUOROSCOPY WITH IMAGES CLINICAL INFORMATION: Caudal epidural injection COMPARISON: None available. TECHNIQUE: Fluoroscopy time: 11 seconds DAP: 146 mGycm2 Images: 3 FINDINGS: Fluoroscopy provided for procedure. 3 images obtained during caudal injection. FL/FL guidance in OR IMPRESSION: Fluoroscopy provided during procedure. See procedure report for details. Electronically signed by: Ruddy Casarez MD 08/03/2025 04:36 PM EST
[2025-08-03 13:03] VITALS: BP 137/57; PULSE 70; RESP 16; TEMP 36.3; O2SAT 97
[2025-08-03] MEDS: Lactated Ringers 1,000 ML 100 ML IVCONT (13:16)
--- NOTE | 2025-08-03 14:03 | MHC.SHP ---
Pre-Procedural Eval Section A - 24 Hr Update-Section A only Date of Service: 08/03/25 The patient is an INPATIENT: No Changes since office visit: Yes Patient answered all questions The patient has been examined within 24 hours of the surgical procedure. The History & Physical has been completed within 30 days and I have reviewed it.: No Section B - Complete if H&P > 30 days Chief Complaint: Spondylosis without myelopathy or radiculopathy, Details of Present Illness: Postlaminectomy syndrome Relevant Family History (Specify if Yes): No Relevant Social History: None Present Medications: None Medical History: No relevant PMH History of Previous Operations: Relevant previous surgery/procedure and date(s) Allergies: Allergies Allergy/AdvReac Type Severity Reaction Status Date / Time penicillin V Allergy Intermediate Rash Verified 07/25/25 13:10 Sulfa (Sulfonamide Allergy Intermediate Rash Verified 07/25/25 13:10 Antibiotics) Tetanus Toxoid Adsorbed Allergy Unknown Unknown Uncoded 06/14/23 11:00 Review of Systems Sugical H&P ROS: Negative: Cardiovascular, Respiratory, Neurological, Psychiatric, Hem-Onc, Allergic/Immunologic, Gastrointestinal, Genitourinary, Integumentary, Endocrine and Eyes/Ears/Nose/Throat and Yes, Specify: Constitution (Trivial obesity) and Musculoskeletal (Disc degeneration disease radiculopathy postlaminectomy syndrome) Exam Surgical H&P Exam: Normal: HEENT, Normal: Heart, Normal: Lungs, Normal: Extremities, Normal: Abdomen, Normal: Skin and Normal: Neurological Plan Diagnosis/Plan: Unchanged I have reviewed the history and physical and performed a pertinent physical examination on my patient. No changes have occurred unless specified. Time Spent With Patient Time: Total time managing care of this patient today ____5 minutes.
--- NOTE | 2025-08-03 14:06 | W.PM.OPN ---
Operative Note Operative Note Date of Service: 08/03/25 Narrative: Carla is very pleasant 80 years old female who came to the operating room for performance of the caudal epidural steroid injection with catheter to treat postlaminectomy syndrome lumbar spine. Informed consent was thoroughly explained to the patient and risks were explained as risks of bleeding infection peripheral nerve damage spinal cord damage and headache. She was brought to the operating room and positioned prone on the operating table. ASA monitors were applied patient was sedated. Time-out was performed delineating name and date of of the patient nature of the procedure side and site of the procedure. The lower back of the patient buttocks of the patient that intergluteal crease were prepped with ChloraPrep and draped with sterile self adhesive utility towels. C-arm was brought over the operating field and sacral bone was demonstrated on the screen. Sacral hiatus was chosen as the target of the injection. Location of the sacral hiatus was determined on anterior posterior and lateral C-arm views. After that projection of the point 1.5 cm below the level of the sacral hiatus was injected with solution of lidocaine 2% and ropivacaine 0.5% mixed 1-1. After that 18 gauge Touhy needle was inserted through the skin wheal and was advanced to were the sacral hiatus on intermittent anterior posterior and lateral views. When tip of the needle entered the caudal canal through the sacral hiatus injection of the contrast was performed delineating epidurogram. After that 22 gauge epidural catheter was inserted through the epidural needle and it was advanced into the needle until the resistance was felt. Contrast was injected into the catheter and demonstrated epidural spread of the contrast. After that 30 cc of preservative-free normal saline was injected into the catheter. Upon completion of the saline injection injection of the lidocaine 1% mixed with Kenalog 40 mg was performed into the catheter. After that the catheter and needle were removed from the insertion site EN mass. Sterile Band-Aid with bacitracin was applied. The patient tolerated procedure well. She was taken outside of the operating room to recovery room where she recovered uneventfully.
[2025-08-03 14:50] VITALS: BP 124/58; PULSE 68; RESP 10; TEMP 36.3; O2SAT 94
--- NOTE | 2025-08-03 14:53 | P.BOP_ITS ---
Brief Operative Note Date of Service: 08/03/25 Pre-op diagnosis: Postlaminectomy syndrome Post-op diagnosis: same Procedure: Caudal epidural steroid injection with catheter Surgeon: Benigno Bailey MD Anesthesia: MAC Was an Double Needle Operator used for this Procedure?: No Estimated blood loss (mL): 0 Condition: stable Disposition: PACU
[2025-08-03 15:05] VITALS: BP 145/60; PULSE 54; RESP 14; O2SAT 94
[2025-08-03 15:20] VITALS: BP 162/83; PULSE 68; RESP 16; TEMP 36.8; O2SAT 96
== END 2025-08-03 15:43 | disposition home or self-care (01) ==
PROVIDERS: PCP Internal Medicine; Visit Provider Anesthesiology
PROC: 3E0R3GC Introduction of Other Therapeutic Substance into Spinal Canal, Percutaneous Approach (ICD-10-PCS; CPT 62322; principal; 2025-08-03 13:50)
DX: M47.817 Spondylosis without myelopathy or radiculopathy, lumbosacral region (principal); M54.16 Radiculopathy, lumbar region; M96.1 Postlaminectomy syndrome, not elsewhere classified; M54.50 Low back pain, unspecified; M79.7 Fibromyalgia; G89.29 Other chronic pain; R20.0 Anesthesia of skin; R20.2 Paresthesia of skin; R26.2 Difficulty in walking, not elsewhere classified; M25.519 Pain in unspecified shoulder; M25.569 Pain in unspecified knee; M79.673 Pain in unspecified foot; F32.A Depression, unspecified; F41.9 Anxiety disorder, unspecified; Z99.89 Dependence on other enabling machines and devices; Z79.891 Long term (current) use of opiate analgesic; Z88.0 Allergy status to penicillin; Z88.2 Allergy status to sulfonamides; Z88.7 Allergy status to serum and vaccine; Z98.1 Arthrodesis status; Z90.49 Acquired absence of other specified parts of digestive tract; Z90.10 Acquired absence of unspecified breast and nipple; Z98.890 Other specified postprocedural states
CPT/HCPCS: 62323; J2003; J2405; J2704; J3010; J3301; Q9967

== ENCOUNTER → 2025-08-03 11:43 | Outpatient (BNV) | payer OTHER, SELFPAY | PROVIDERS: PCP Internal Medicine; Visit Provider Anesthesiology | DX: M96.1 Postlaminectomy syndrome, not elsewhere classified (principal) | CPT/HCPCS: 62323 ==

== ENCOUNTER 2025-08-31 10:58 | Outpatient (REF) | payer OTHER, SELFPAY ==
--- NOTE | ~2025-08-31 | XR_ITS ---
EXAMINATION: XR LUMBOSACRAL SPINE CLINICAL INFORMATION: M54.50 - Low back pain, unspecified COMPARISON: None available. TECHNIQUE: 6 views of the lumbar spine, inclusive of flexion and extension views, and bilateral oblique views, were obtained. FINDINGS: Extensive fusion of the lumbar spine spanning L1-L5 with bilateral transpedicular screws, and posterior connecting rods. There are intervening disc prostheses present. There have been associated laminectomies. Bone grafting material has been placed around the facet joints which appears largely incorporated without significant fragmentation. The hardware is intact. No gross periscrew lucencies are evident. Evaluation for periscrew lucencies is limited due to inherent technical limitations of the exam. There is a mild levoconvex scoliosis. There is mild straightening of the normal lordosis. There is no definitive subluxation on the lateral projection. Flexion and extension views demonstrate no definite instability, although there appears to be limited patient effort. There are no fractures or compression deformities. Moderate to severe disc degeneration noted at L5-S1, as well as T11-T12 and T12-L1. There are vascular calcifications in the soft tissues. XR/XR lumbar spine 6V w bending IMPRESSION: 1. Extensive fusion of L1-L5 with transpedicular screws, posterior connecting rods, and disc prostheses. No definite periscrew lucencies on plain film radiography, which is technically limited. CT may be more sensitive. 2. No definite subluxations. No definite evidence of instability on flexion and extension views although there appears to be a limited patient effort. 3. There is a mild levoconvex scoliosis. 4. There is no definite acute bony abnormality or compression deformity. 5. Moderate to severe degenerative disc changes T11-T12, T12-L1, and L5-S1. Electronically signed by: Jason Mckeon MD 08/31/2025 12:38 PM [facility]
== END 2025-08-31 10:59 | disposition home or self-care (01) ==
LOC: HO.XRAY 10:58
PROVIDERS: PCP Internal Medicine; Visit Provider Nurse Practitioner Family
DX: M54.16 Radiculopathy, lumbar region (principal); M96.1 Postlaminectomy syndrome, not elsewhere classified; M54.50 Low back pain, unspecified; G89.29 Other chronic pain; M47.817 Spondylosis without myelopathy or radiculopathy, lumbosacral region; M79.7 Fibromyalgia
CPT/HCPCS: 72114; 99212

== ENCOUNTER 2025-08-31 10:58 | Outpatient (AMB) | payer OTHER, SELFPAY ==
--- NOTE | 2025-08-31 11:06 | A.OFFVIS_ITS ---
Vital Signs 3 08/31/25 11:10 Height 5 ft 2 in Weight 198 lb BMI 36.2 BP 149/70 H Blood Pressure Location Rt brachial Position Sitting Pulse 61 Pulse Source Pulse Oximeter Pulse Oximetry (%) 98 Oxygen Delivery Method Room Air Intake Visit Reasons: S/p Caudal NICHOLE w/ Catheter 07/27/25 Intake Note: Pain today 8/10 All Around Presser Required: No Accompanied by: Family/Other Allergies penicillin V Allergy (Intermediate, Verified 08/31/25 11:11) Rash Sulfa (Sulfonamide Antibiotics) Allergy (Intermediate, Verified 08/31/25 11:11) Rash Tetanus Toxoid Adsorbed Allergy (Unknown, Uncoded 06/14/23 11:00) Unknown HPI Comments Details: The patient is a 80 year old female presenting for follow-up on a recent Caudal NICHOLE with catheter injection for chronic back and leg pain. She reports that the injection provided pain relief for her back and leg for about four days. During that time, her pain level was reduced to a 2/10. Her surgical history includes a back surgery in 1980 and a spinal fusion in [address] Berger in [place]. Her most recent MRI was in October. The patient reports significant instability when she walks. She uses walker and assistance from her family. Getting up from sitting position and walking easily reproduces her symptoms. She avoids bending or flexion due to pain. Denies any recent cough, cold, infection, fever or any significant changes in medical history since last office visit. - Location: The patient experiences pain in her back and leg. - Severity: The pain was reduced to a 2/10 for four days following a recent injection. - Interventions: A recent injection provided about four days of pain relief before the pain returned. - Associated symptoms: The patient reports significant instability when walking. - Analgesia: A recent injection provided approximately four days of pain relief for her back and leg, with pain levels decreasing to a 2/10. - Affect: The patient reports the pain is very significant, stating it makes her feel crazy. - Activities of Daily Living: The patient reports having a lot of instability when she walks. Past Procedures: 08/03/25: Caudal epidural steroid injection with catheter-80% pain relief for 4 days PRIOR: The patient is a 80-year-old female presenting with chronic back pain. The back pain has been persistent since a spinal fusion surgery in 2013, performed in [place], which involved the lower back extending to the middle region. The pain is described as severe, with a current intensity of 8 out of 10, and radiates to both legs, more prominently on the left side, causing significant discomfort day and night. The patient has a history of fibromyalgia, which contributes to her overall pain experience. She has undergone knee surgery on the right side and uses a cane, wheelchair, or walker for mobility due to the exacerbation of pain with walking. The patient has been prescribed oxycodone for pain management, which she has been taking for the past two months, although it does not fully alleviate her pain. She previously tried gabapentin, but it was discontinued due to elevated ammonia levels. The patient reports that her pain is constant, burning, stabbing, and sharp, with associated numbness and tingling, affecting her daily activities and quality of life. The patient also experiences anxiety and depression, for which she consults a Psychiatrist via phone every two months. She has been living with chronic pain since her first back surgery in 1980 and has tried various therapies, including physical therapy, acupuncture, and pharmacy care coordinator, with limited relief. - Onset: Persistent since spinal fusion surgery in 2013 - Quality: Constant, burning, stabbing, sharp, numbness, tingling - Location: Lower back, radiating to both legs, more on the left - Exacerbating factors: Walking, standing - Relieving factors: None mentioned - Interference: Affects daily activities, mobility, mood, quality of life - Affect: Pain impacts mood and psychological wellbeing, contributing to anxiety and depression - Analgesia: Currently using oxycodone, pain level at 8/10, goal pain level not specified - Adverse Effects: None reported from current medication - Activities of Daily Living: Pain affects daily activities, mobility, and quality of life - Aberrant Drug Related Behaviors: None reported [facility] Medical History Urinary incontinence Memory loss Chronic pain Astasia-abasia Anxiety Depression Lumbar spondylosis GERD (gastroesophageal reflux disease) HTN (hypertension) Fibromyalgia Surgical History History of esophagogastroduodenoscopy (EGD) History of lumbar surgery History of knee surgery H/O shoulder surgery H/O mastectomy History of cholecystectomy Hx of appendectomy Social History Are you a primary manager home healthcare to a significant other at home: No Do you presently have visiting nurse or other home services: No Alcohol intake: never Patient Tobacco Use Status: Never used Tobacco e-Cigarette/Vaping Use: Never Used Second Hand Smoke Exposure: No Review of Systems Const All systems reviewed & are unremarkable except as noted in HPI and below Physical Exam General: Appears afebrile. Alert and oriented. Mood and affect appropriate. Follows and participates in conversation appropriately. Respiratory effort is unlabored. No cough. Able to transition from sit to stand unassisted. Difficulty to get up from sitting to standing. Ambulates with bilaterally normal heel strike and toe off. Uses cane with ambulation. General: Yes no CVA tenderness Back/Spine/Pelvis Other: Limited lumbar ROM due to pain. Lumbar flexion and extension reproduces moderate pain. Demonstrates 5/5 strength of quadriceps bilaterally as well as flexion/dorsiflexion of bilateral feet against resistance. 2+ pedal pulses bilaterally. Straight leg rise with dorsiflexion positive bilaterally, left>right. +1 patellar and achilles reflexes bilaterally. Facet loading test positive bilaterally. Michael?s and Stinchfield tests are positive bilaterally. No groin pain with I/E hip rotations. Valsalva maneuver negative. Multiple widespread TTPs bilaterally, including upper and lower extremities. Back: no CVA tenderness Cervical Spine: cervical ROM normal, cervical muscular tenderness and No Cervical spine tenderness Thoracic/Lumbar Spine: thoracic and lumbar spine normal to inspection, Thoracic/lumbar spine scar(s), Lasegue's sign positive bilateral and diffuse, pain with thoraco-lumbar ROM, paraspinal muscle tenderness, thoraco-lumbar ROM limited, No thoracic spinal tenderness and lumbar spinal tenderness at L4 and at L5 Sacroiliac joints: bilaterally tender to palpation Results Reviewed Results Reviewed: Assessment & Plan Assessment & Plan (1) Lumbar post-laminectomy syndrome: Code(s): M96.1 - Postlaminectomy syndrome, not elsewhere classified Category: Medical (2) Chronic low back pain: Code(s): M54.50 - Low back pain, unspecified; G89.29 - Other chronic pain Category: Medical (3) Lumbar radiculopathy: Code(s): M54.16 - Radiculopathy, lumbar region Category: Medical (4) Lumbosacral spondylosis: Code(s): M47.817 - Spondylosis without myelopathy or radiculopathy, lumbosacral region Category: Medical (5) Fibromyalgia: Code(s): M79.7 - Fibromyalgia Category: Medical Plan Given the limited duration of relief from the injection, the patient will be referred to [facility] for evaluation. If the surgeon determines she is not a candidate for additional surgery, we can revisit spinal cord stimulation trial and implant procedure. To further assess her reported instability, flexion and extension X-rays will be ordered to evaluate the status of her 2014 fusion and check for instability. Most recent lumbar spine MRI is noted above, was completed in October 2024. All questions and concerns have been answered and patient agreed with the treatment plan. Follow up as needed. Patient was informed and verbally consented to the use of an ambient scribe for clinic note documentation during this visit. Orders: Orders 2 XR lumbar spine 6V w bending Today G89.29 - Other chronic pain, M47.817 - Spondylosis without myelopathy or radiculopathy, lumbosacral region, M54.16 - Radiculopathy, lumbar region, M54.50 - Low back pain, unspecified, M96.1 - Postlaminectomy syndrome, not elsewhere classified Referrals 2 Neuro Spine Referral G89.29 - Other chronic pain, M54.16 - Radiculopathy, lumbar region, M54.50 - Low back pain, unspecified, M96.1 - Postlaminectomy syndrome, not elsewhere classified Coding Level of Care Code Est Pt Level 3 (38165) Complex visit Add On G2211 Diagnoses Lumbar post-laminectomy syndrome M96.1 Chronic low back pain M54.50; G89.29 Lumbar radiculopathy M54.16 Lumbosacral spondylosis M47.817 Fibromyalgia M79.7
[2025-08-31 11:10] VITALS: BP 149/70; PULSE 61; O2SAT 98; BMI 36.2
--- OUTSIDE RECORDS SUMMARY | 2025-08-31 13:28 | XMS_ITS ---
Author Name [facility] Organization Unknown Results Test Name/Text Value Interpretation Date Range Source SODIUM SERPL SCNC 135.0 mmol/L Normal 11/11/2023 135 - 14 5 [facility] CHLORIDE SERPL SCNC 99.0 mmol/L Normal 11/11/2023 98 - 107 [facility] CREAT SERPL MCNC 0.8 mg/dL Normal 11/11/2023 0.5 - 1 [facility] BUN SERPL MCNC 21.0 mg/dL Above high normal 11/11/2023 7 - 1 7 [facility] POTASSIUM SERPL SCNC 4.1 mmol/L Normal 11/11/2023 3.5 - 5.1 [facility] GLUCOSE SERPL MCNC 94.0 mg/dL Normal 11/11/2023 70 - 199 [facility] ANION GAP SERPL SCNC 7.0 mmol/L Normal 11/11/2023 5 - 14 [facility] Glomerular filtration rate/1.73 sq M. predicted 76.0 Normal 11/11/2023 60 - [facility] HCO3 SER SCNC 29.0 mmol/L Normal 11/11/2023 24 - 32 [facility] CALCIUM SERPL MCNC 8.7 mg/dL Normal 11/11/2023 8.4 - 10.2 [facility] HGB BLD MCNC 13.0 g/dL Normal 11/11/2023 12.5 - 16 [facility] RDW RBC AUTO RTO 14.6 % Normal 11/11/2023 12.1 - 16.2 [facility] MCH RBC QN AUTO 29.5 pg Normal 11/11/2023 25 - 33 [facility] WBC NO. BLD AUTO 8.9 K/uL Normal 11/11/2023 4 - 10.5 CT [facility] RBC NO. BLD AUTO 4.42 M/uL Normal 11/11/2023 4.2 - 5.4 [facility] PLATELET NO. BLD AUTO 261.0 K/uL Normal 11/11/2023 150 - 450 [facility] PMV BLD AUTO 9.4 fL Normal 11/11/2023 7.4 - 11.4 [facility] HCT VFR BLD AUTO 38.5 % Normal 11/11/2023 37 - 47 [facility] MCHC RBC AUTO MCNC 33.9 g/dL Normal 11/11/2023 32 - 36 [facility] MCV RBC AUTO 87.1 fL Normal 11/11/2023 78 - 100 [facility] MAGNESIUM SERPL MCNC 2.0 mg/dL Normal 11/11/2023 1.7 - 2.8 [facility] MAGNESIUM SERPL MCNC 2.1 mg/dL Normal 11/10/2023 1.7 - 2.8 [facility] CREAT SERPL MCNC 0.9 mg/dL Normal 11/10/2023 0.5 - 1 [facility] BUN SERPL MCNC 19.0 mg/dL Above high normal 11/10/2023 7 - 1 7 [facility] HCO3 SER SCNC 30.0 mmol/L Normal 11/10/2023 24 - 32 [facility] SODIUM SERPL SCNC 135.0 mmol/L Normal 11/10/2023 135 - 14 5 [facility] Glomerular filtration rate/1.73 sq M. predicted 66.0 Normal 11/10/2023 60 - [facility] POTASSIUM SERPL SCNC 4.5 mmol/L Normal 11/10/2023 3.5 - 5.1 [facility] CALCIUM SERPL MCNC 8.8 mg/dL Normal 11/10/2023 8.4 - 10.2 [facility] CHLORIDE SERPL SCNC 99.0 mmol/L Normal 11/10/2023 98 - 107 [facility] ANION GAP SERPL SCNC 6.0 mmol/L Normal 11/10/2023 5 - 14 [facility] GLUCOSE SERPL MCNC 97.0 mg/dL Normal 11/10/2023 70 - 199 [facility] PLATELET NO. BLD AUTO 255.0 K/uL Normal 11/10/2023 150 - 450 [facility] MCHC RBC AUTO MCNC 33.4 g/dL Normal 11/10/2023 32 - 36 [facility] RDW RBC AUTO RTO 14.6 % Normal 11/10/2023 12.1 - 16.2 [facility] PMV BLD AUTO 9.2 fL Normal 11/10/2023 7.4 - 11.4 [facility] HCT VFR BLD AUTO 41.0 % Normal 11/10/2023 37 - 47 [facility] RBC NO. BLD AUTO 4.69 M/uL Normal 11/10/2023 4.2 - 5.4 CT [facility] MCH RBC QN AUTO 29.3 pg Normal 11/10/2023 25 - 33 [facility] MCV RBC AUTO 87.5 fL Normal 11/10/2023 78 - 100 [facility] WBC NO. BLD AUTO 7.5 K/uL Normal 11/10/2023 4 - 10.5 [facility] HGB BLD MCNC 13.7 g/dL Normal 11/10/2023 12.5 - 16 [facility] GLUCOSE BLDC GLUCOMTR MCNC 94.0 mg/dL Normal 11/09/2023 70 - 199 [facility] GLUCOSE BLDC GLUCOMTR MCNC 120.0 mg/dL Normal 11/09/2023 70 - 199 [facility] GLUCOSE BLDC GLUCOMTR MCNC 83.0 mg/dL Normal 11/09/2023 70 - 199 [facility] pH Ur Strip.auto 6.0 Normal 11/07/2023 4.5 - 8 [facility] Color Ur Auto YELLOW Normal 11/07/2023 [facility] Ketones Ur Ql Strip.auto NEGATIVE Normal 11/07/2023 - [facility] Prot Ur Ql Strip.auto NEGATIVE Normal 11/07/2023 - [facility] Leukocyte esterase Ur Ql Strip.auto SMALL Abnormal 11/07/2023 - [facility] Hgb Ur Ql Strip.auto NEGATIVE Normal 11/07/2023 - [facility] Clarity Ur Refract.auto SLIGHTLY CLOUDY Normal 11/07/2023 [facility] Bacteria Ur Ql Auto PRESENT Abnormal 11/07/2023 - [facility] Nitrite Ur Ql Strip.auto NEGATIVE Normal 11/07/2023 - [facility] Sp Gr Ur Strip.auto 1.011 Normal 11/07/2023 1.005 - 1.03 [facility] WBC number/area UrnS Auto 3.0 /HPF Normal 11/07/2023 0 - 5 [facility] RBC number/area UrnS Auto <1 Normal 11/07/2023 0 - 3 [facility] Glucose Ur Ql Strip.auto NEGATIVE Normal 11/07/2023 - [facility] Squamous number/area UrnS Auto 16.0 /LFP Above high normal 11/07/2023 0 - 5 [facility] SPECIMEN SOURCE XXX URINE CLEAN CATCH Normal 11/07/2023 [facility] TSH SerPl DL<=0.005 mIU/L-aCnc 1.37 uIU/mL Normal 11/07/2023 0.45 - 5.33 [facility] MCHC RBC AUTO MCNC 32.9 g/dL Normal 11/06/2023 32 - 36 [facility] RDW RBC AUTO RTO 14.9 % Normal 11/06/2023 12.1 - 16.2 [facility] MCV RBC AUTO 87.9 fL Normal 11/06/2023 78 - 100 [facility] MCH RBC QN AUTO 28.9 pg Normal 11/06/2023 25 - 33 [facility] HGB BLD MCNC 13.6 g/dL Normal 11/06/2023 12.5 - 16 [facility] RBC NO. BLD AUTO 4.71 M/uL Normal 11/06/2023 4.2 - 5.4 [facility] PLATELET NO. BLD AUTO 254.0 K/uL Normal 11/06/2023 150 - 450 [facility] HCT VFR BLD AUTO 41.4 % Normal 11/06/2023 37 - 47 [facility] WBC NO. BLD AUTO 5.1 K/uL Normal 11/06/2023 4 - 10.5 [facility] PMV BLD AUTO 9.6 fL Normal 11/06/2023 7.4 - 11.4 [facility] T4 FREE SERPL MCNC 0.6 ng/dL Normal 11/06/2023 0.5 - 1.3 [facility] BILIRUB SERPL MCNC 0.7 mg/dL Normal 11/06/2023 0.3 - 1 [facility] BUN SERPL MCNC 15.0 mg/dL Normal 11/06/2023 7 - 17 [facility] CREAT SERPL MCNC 0.9 mg/dL Normal 11/06/2023 0.5 - 1 [facility] ALP SERPL-CCNC 126.0 U/L Above high normal 11/06/2023 34 - 1 04 [facility] POTASSIUM SERPL SCNC 4.4 mmol/L Normal 11/06/2023 3.5 - 5.1 [facility] ANION GAP SERPL SCNC 8.0 mmol/L Normal 11/06/2023 5 - 14 [facility] PROT SERPL MCNC 7.1 g/dL Normal 11/06/2023 6.4 - 8.5 [facility] CHLORIDE SERPL SCNC 101.0 mmol/L Normal 11/06/2023 98 - 107 [facility] Glomerular filtration rate/1.73 sq M. predicted 66.0 Normal 11/06/2023 60 - [facility] CALCIUM SERPL MCNC 9.0 mg/dL Normal 11/06/2023 8.4 - 10.2 [facility] ALT SERPL CCNC 117.0 U/L Above high normal 11/06/2023 7 - 52 [facility] HCO3 SER SCNC 29.0 mmol/L Normal 11/06/2023 24 - 32 [facility] AST SERPL CCNC 145.0 U/L Above high normal 11/06/2023 5 - 40 [facility] ALBUMIN SERPL BCG MCNC 4.1 g/dL Normal 11/06/2023 3.5 - 5 [facility] GLUCOSE SERPL MCNC 104.0 mg/dL Normal 11/06/2023 70 - 199 [facility] SODIUM SERPL SCNC 138.0 mmol/L Normal 11/06/2023 135 - 14 5 [facility] TSH SerPl DL<=0.005 mIU/L-aCnc 6.25 uIU/mL Above high normal 11/06/2023 0.45 - 5.33 [facility] ESR Bld Qn Photometric 61.0 mm/h Above high normal 11/06/2023 0 - 20 [facility] CRP SERPL MCNC 1.3 mg/dL Above high normal 11/06/2023 - 0.9 [facility] CK SERPL CCNC 59.0 U/L Normal 11/06/2023 30 - 135 [facility] Service [facility] XXX-Imp Mueller Alinity M Normal 11/06/2023 [facility] FLUAV RNA Nph Ql BONITA+non-probe Not Detected Normal 11/06/2023 [facility] FLUBV RNA Nph Ql BONITA+non-probe Not Detected Normal 11/06/2023 [facility] RSV RNA Nph Ql BONITA+non-probe Not Detected Normal 11/06/2023 [facility] SPECIMEN SOURCE XXX NASOPHARYNGEAL Normal 11/06/2023 [facility] Encounters Encounter Type Encounter Reason Primary Diagnosis Location Date Inpatient Other symptoms and signs involving the musculoskeletal system Other symptoms and signs involving the musculoskeletal system [facility] [place] Care Team Organization Name Specialty Phone Email Start Date [place] [facility] [place]
--- OUTSIDE RECORDS SUMMARY | 2025-08-31 13:28 | XMS_ITS | Encounter Summary ---
Author Organization [facility] Address [address] [place] [id number] Phone Care Team Providers Care Collections Associate Name Role Phone Reji Wilde MD Primary Care Provider [phone]- [phone] Encounter Details Date Type Department Care Team (Late st Contact Info) Description 01/24/2025 Procedure Pass [facility] [address] [place] [address] Social History Tobacco Use Types Packs/Day Years [...] as of this encounter Plan of Treatment Not on file documented as of this encounter Visit Diagnoses Not on filedocumented in this encounter Care Teams Collections Associate Relationship Specialty Start Date End Date Reji Wilde MD [address] [place] [address] PCP - General Internal Medicine 01/01/25 documented as of this encounter Additional Source Comments The information contained in this document represents components of the legal health record. It is not the complete legal health record.[facility]
--- OUTSIDE RECORDS SUMMARY | 2025-08-31 13:28 | XMS_ITS | Clinical Summary ---
Author Organization [facility] ity Address [address] [place] [address] Care Team Providers Care Odd Shoe Examiner Name Role Phone Unavailable Primary Care Provider [...] DTaP,Tdap,and Td Vaccines (1 - Tdap) 1965 Zoster Vaccines (1 of 2) 01/05/1996 Pneumococcal Vaccine: 50+ Years (2 of 2 - PCV) 02/17/2015 02/17/2014 RSV Immunization Adult Patients (1 - 1-dose 75+ series) 2021 Cholesterol Screening (Lipid Panel) 08/30/2022 Falls Risk Assessment 08/30/2022 Hepatitis C Screening 08/30/2022 Osteoporosis Screening (Bone Density Screening) 08/30/2022 Social Influencers of Health Screening 08/30/2022 Depression Screening 09/27/2024 COVID-19 Vaccine ( season) 2025 06/23/2024, 07/30/2023, 07/24/2021, Additional history exists Influenza Vaccine (#1) 2025 , 07/30/2023, 06/26/2022, Additional history exists Hypertension/CHF/CAD Annual BMP Blood Test 01/24/2026 01/24/2025, 11/11/2023, 11/10/2023, Additional history exists HIB Vaccines Aged Out No longer eligi [...] 20 months Aged Out No longer eligible based on patient's age to complete this topic Varicella Vaccines Aged Out No longer eligible based on patient's age to complete this topic
--- OUTSIDE RECORDS SUMMARY | 2025-08-31 13:28 | XMS_ITS | Encounter Summary ---
Author Organization [facility] Address [address] [place] [address] Phone Care Team Providers Care Eye Technician Name Role Phone Reji Wilde MD Primary Care Provider [phone]- [phone] Encounter Details Date Type Department Care Team (Late st Contact Info) Description 04/09/2025 Procedure Pass [facility] Endoscopy Department [address] [place] [id number] Social History Tobacco Use Types Packs/Day Years [...] on filedocumented in this encounter Care Teams Eye Technician Relationship Specialty Start Date End Date Reji Wilde MD [address] [place] [id number] PCP - General Internal Medicine 01/01/25 documented as of this encounter Additional Source Comments The information contained in this document represents components of the legal health record. It is not the complete legal health record.[facility]
--- OUTSIDE RECORDS SUMMARY | 2025-08-31 13:28 | XMS_ITS | Clinical Summary ---
Author Organization [facility] Address [address] [place] [id number] Phone Care Team Providers Care Wind Field Manager Name Role Phone Reji Wilde MD Primary Care Provider [phone]- [phone] Allergies Active Allergy Reactions Criticality Noted Date [...] Maintenance, 07/03/24 12:12:00 PM EDT, PillPack by [facility], 159, cm, 06/28/24 10:30:00 EDT, Height, [...] Encounters Date Type Department Care Team Description 08/06/[address] [facility] [address] [facility] [address] [place] [address] Marielena Foster MD from Last 3 Months Immunizations Immunization Administration Dates Next Due Influenza, Unspecified Formulation 07/07(Deferred: Patient Decision - , Ordered By: [id number]) Pneumococcal polysaccharide PPSV23 02/17/2014 Pneumococcal, Unspecified Formulation (Deferred: Other - , Ordered By: [id number]) Social History Tobacco Use Types Packs/Day Years [...] 04/02/2025 3:47 PM EDT Plan of Treatment Health Maintenance Due Date [...] 07/30/2023, 06/26/2022, Additional history exists COVID-19 VACCINE (2024- season) 2025 06/23/2024, 07/30/2023, 06/26/2022, Additional history [...] this topic Medical Devices Implanted Type Area Payable Processor Device Identifier Shelf Expiration Date Model / Serial / Lot Back Octavio Insurance [facility] [place] [id number] MEDICARE PART A & B [facility] MEDICARE REPLACEMENT MEDICARE PART A & B MEDICARE PART A & [place] [address] [place] [address] MEDICARE REPLACEMENT MEDICARE PART A & B [facility] MEDICARE REPLACEMENT MEDICARE PART A & B [facility] MEDICARE REPLACEMENT MEDICARE PART A & B Care Teams Wind Field Manager Relationship Specialty Start Date End Date Reji Wilde MD [address] [place] [id number] PCP - General Internal Medicine 01/01/25 Additional Source Comments The information contained in this document represents components of the legal health record. It is not the complete legal health record.[facility]
--- OUTSIDE RECORDS SUMMARY | 2025-08-31 13:28 | XMS_ITS | Clinical Summary ---
Author Organization [facility] Prior to 02/24/25 Address [address] [place] [address] Care Team Providers Care Assistant Operator Name Role Phone Unavailable Primary Care Provider [...] 75+ series) 2021 COVID-19 Vaccine ( - 2024- season) 2025 06/26/2022, 07/24/2021, 01/09/2021, Additional history exists Influenza Vaccine (#1) 2025 2, 06/26/2022, 06/28/2021, Additional history exists Hepatitis B Vaccines Aged Out No long er eligible based on patient's age to complete this topic RSV Ped < 20 months Aged Out No longe r eligible based on patient's age to complete this topic Advance Directives For more information, please contact: [phone] Latest Code Status on File Code Status Date Activated Date Inactivated Comments Full Code 11/06/2023 5:27 AM 11/11/2023 10:35 PM This code status was ascertained in the following way: discussion with patient .
== END 2025-08-31 11:19 | disposition home or self-care (01) ==
PROVIDERS: PCP Internal Medicine; Visit Provider Nurse Practitioner Family
DX: M96.1 Postlaminectomy syndrome, not elsewhere classified (principal); M54.50 Low back pain, unspecified; G89.29 Other chronic pain; M54.16 Radiculopathy, lumbar region; M47.817 Spondylosis without myelopathy or radiculopathy, lumbosacral region; M79.7 Fibromyalgia
CPT/HCPCS: 99213; G2211

== ENCOUNTER → 2025-08-31 11:35 | Outpatient (BNV) | payer OTHER, SELFPAY | PROVIDERS: PCP Internal Medicine; Visit Provider Radiology Diagnostic Radiology | DX: M51.25 Other intervertebral disc displacement, thoracolumbar region (principal); M43.26 Fusion of spine, lumbar region | CPT/HCPCS: 72114 ==

== ENCOUNTER 2025-09-21 10:55 | Outpatient (AMB) | payer OTHER, SELFPAY ==
--- OUTSIDE RECORDS SUMMARY | 2025-09-21 10:57 | XMS_ITS | Encounter Summary ---
Author Organization [facility] Address [address] [place] [address] Phone Care Team Providers Care [employer] Pe Teacher Name Role Phone Reji Wilde MD Primary Care Provider +1- [phone] Encounter Details Date Type Department Care Team (Late st Contact Info) Description 01/24/2025 Procedure Pass [facility] [address] [place] [address] Social History Tobacco Use Types Packs/Day Years [...] on filedocumented in this encounter Care Teams Middle [employer] Pe Teacher Relationship Specialty Start Date End Date Reji Wilde MD [address] [place] [address] PCP - General Internal Medicine 01/01/25 documented as of this encounter Additional Source Comments The information contained in this document represents components of the legal health record. It is not the complete legal health record.[facility]
--- OUTSIDE RECORDS SUMMARY | 2025-09-21 10:57 | XMS_ITS | Clinical Summary ---
Author Organization [facility] Address [address] [place] [address] Care Team Providers Care Pattern Filer Name Role Phone Unavailable Primary Care Provider [...] on file Sexual Orientation Not on file Plan of Treatment Health Maintenance Due Date [...]
--- OUTSIDE RECORDS SUMMARY | 2025-09-21 10:57 | XMS_ITS | Clinical Summary ---
Author Organization [facility] Address [address] [place] [address] Phone Care Team Providers Care Case Operator Name Role Phone Reji Wilde MD Primary Care Provider +1- [phone] Allergies Active Allergy Reactions Criticality Noted Date [...] Maintenance, 07/03/24 12:12:00 PM EDT, [facility] by [facility], 159, cm, 06/28/24 10:30:00 EDT, [...] Type Department Care Team Description 08/06/2025 Telephone [facility] [address] [place] [address] Marielena Foster MD from Last 3 Months Immunizations Immunization Administration Dates Next Due Influenza, Unspecified Formulation 07/07(Deferred: Patient Decision - , Ordered By: [id number]) Pneumococcal polysaccharide PPSV23 02/17/2014 Pneumococcal, Unspecified Formulation (Deferred: Other - , Ordered By: [id number]) Social History Tobacco Use Types Packs/Day Years [...] this topic Medical Devices Implanted Type Area Tooth Cutter Spur Device Identifier Shelf Expiration Date Model / Serial / Lot Back Octavio Insurance [facility] MEDICARE REPLACEMENT MEDICARE PART A & B [facility] MEDICARE REPLACEMENT MEDICARE PART A & B MEDICARE PART A & [place] [address] [place] [address] MEDICARE REPLACEMENT MEDICARE PART A & B [facility] MEDICARE REPLACEMENT MEDICARE PART A & B [facility] MEDICARE REPLACEMENT JACKIE RODRIGUEZ [id number] MEDICARE PART A & B Care Teams Case Operator Relationship Specialty Start Date End Date Reji Wilde MD [address] [place] [address] PCP - General Internal Medicine 01/01/25 Additional Source Comments The information contained in this document represents components of the legal health record. It is not the complete legal health record.[facility]
--- OUTSIDE RECORDS SUMMARY | 2025-09-21 10:57 | XMS_ITS | Clinical Summary ---
Author Organization [facility] Prior to 02/24/25 Address [address] [place] [address] Care Team Providers Care Metal Annealer Name Role Phone Unavailable Primary Care Provider [...] Advance Directives For more information, please contact: [phone] Latest Code Status on File Code Status Date Activated Date Inactivated Comments Full Code 11/06/2023 5:27 AM 11/11/2023 10:35 PM This code status was ascertained in the following way: discussion with patient .
--- OUTSIDE RECORDS SUMMARY | 2025-09-21 10:57 | XMS_ITS | Encounter Summary ---
Author Organization [facility] Address [address] [place] [address] Phone Care Team Providers Care Monument Setter Name Role Phone Reji Wilde MD Primary Care Provider +1- [phone] Encounter Details Date Type Department Care Team (Late st Contact Info) Description 04/09/2025 Procedure Pass [facility] Endoscopy Department [address] [place] [address] Social History Tobacco Use Types Packs/Day Years [...] on filedocumented in this encounter Care Teams Monument Setter Relationship Specialty Start Date End Date Reji Wilde MD [address] [place] [address] PCP - General Internal Medicine 01/01/25 documented as of this encounter Additional Source Comments The information contained in this document represents components of the legal health record. It is not the complete legal health record.[facility]
--- OUTSIDE RECORDS SUMMARY | 2025-09-21 10:57 | XMS_ITS | Data Portability ---
Author Organization [facility] [address] Address [address] [place] [address] Assessment No assessment recorded. Plan of Treatment Reminders Order Date Submit Date Provider Last Modified By Organization Details Last Modified Time Details Appointments None recorded. Lab None recorded. Referral emergency medicine referral [address] Emergency Department, [address] [place] [address], [address], 14:59:27 Procedures None recorded. Surgeries None recorded. Imaging None recorded. Medication Orders None recorded. Patient TargetsNo targets recorded. Patient InstructionsNo instructions recorded. Reason for Referral Emergency Medicine Referral for Swelling of lower leg Referring Physician: Bismark Grover, Urgent Care, Encounter Date: 12/25/2022 Problems Name Problem SNOMED Code Status Onset Date Resolution Date Notes Provider Name and Address Organization Details Recorded Time Dementia 54665224 Active 2022 Maira beckman PA - [facility] 14:08:35 Neuropathy 205430270 Active 2022 Maira beckman PA - [facility] 14:08:43 Hypertensive disorder 40717524 Active 2022 Maira beckman PA - [facility] 14:10:58 Asthma 286227524 Active 2022 Maira beckman PA - [facility] 14:11:09 Problem Notes None recorded. Procedures Surgical History Date Name Laterality Status Provider Name and Address Organization Details Recorded Time Appendectomy completed Maira FONSECA - [facility] 12/25/2022 14:11:29 cholecystectomy completed Maira Bishop A - [facility] 12/25/2022 14:11:35 Mastectomy form completed Maira Hahn - [facility] 12/25/2022 14:11:52 procedure on back completed Maira Cotto PA - [facility] 12/25/2022 14:11:57 Knee arthroscopy/surgery completed Maira FONSECA - [facility] 12/25/2022 14:12:04 Imaging Results None recorded. Procedure Notes None recorded. Medical Equipment None Reported. Allergies Allergen ID Allergen Name Allergen Category Reaction Reaction Severity Criticality Documentation Date Start Date Code Code System Note Provider Name and Address Organization Details Recorded Time 331464 tetanus and diphtheri a toxoids Not available Not available Not available Not available 12/25/2022 Maira beckman PA - [facility] 14:05:07 091455 Bactrim medicatio n Not available Not available Not available 12/25/2022 47644 9 RxNorm Maira beckman PA - [facility] 14:05:11 711053 Product containin g penicilli n (product) medicatio n Not available Not available Not available 12/25/2022 05143 8001 SNOMED Maira beckman PA - [facility] 14:05:17 Medications Name Sig Start Date Stop Date Status Note LastModified by Organization Details LastModified Time quetiapine 25 mg tablet TAKE ONE TABLET BY MOUTH UP TO TWICE A DAY NEEDED active Not Available Not Available No t Available azithromyci n 250 mg tablet TAKE 2 TABLETS BY MOUTH TODAY, THEN TAKE 1 TABLET DAILY FOR 4 DAYS 12/25 completed Not Available Not Available Not Available hydrocodone 5 mg-acetamin ophen 325 mg tablet TAKE 1 TABLET BY MOUTH EVERY DAY NEEDED FOR PAIN active Not Available Not Available No t Available hydroquinon e 4 % topical cream APPLY TOPICALLY TO FACE TWICE A DAY active Not Available Not Available No t Available ropinirole 3 mg tablet PLEASE SEE ATTACHED FOR DETAILED DIRECTION S active Not Available Not Available No t Available benzonatate 100 mg capsule TAKE 1 CAPSULE BY MOUTH 3 TIMES A DAY NEEDED COUGH FOR 10 DAYS 03/31 /2023 completed Not Available Not Available Not Available fluorometho lone 0.1 % eye drops,suspe nsion INSTILL 1 DROP INTO BOTH EYES TWICE A DAY active Not Available Not Available No t Available montelukast 10 mg tablet TAKE 1 TABLET BY MOUTH EVERY DAY NEEDED active Not Available Not Available No t Available albuterol sulfate HFA 90 mcg/actuati on aerosol inhaler INHALE 2 PUFFS BY MOUTH 4 TIMES A DAY NEEDED FOR COUGH,GEETHA RTNESS OF BREATH active Not Available Not Available No t Available aspirin active Not Available Not Avail able Not Available citalopram active Not Available Not Av ailable Not Available alprazolam active Not Available Not Av ailable Not Available donepezil active Not Available Not Anne ilable Not Available esomeprazol e magnesium active Not Available Not Available Not Available memantine active Not Available Not Anne ilable Not Available quetiapine 50 mg tablet TAKE 1-2 TABLETS BY MOUTH DAILY NEEDED AT BEDTIME active Not Available Not Available No t Available [facility] spacer USE WITH METERED DOSE INHALER active Not Available Not Available No t Available Myrbetriq active Not Available Not Anne ilable Not Available Linzess 145 mcg capsule TAKE 1 CAPSULE BY MOUTH EVERY DAY active Not Available Not Available No t Available Vitals Date Recorded Body height Body mass index (BMI) Body weight Pain severity - 0-10 verbal numeric rating [Score] - Reported Respiratory rate Body temperature Heart rate Oxygen saturation Systolic And Diastolic Provider Name and Address Organization Details Last Updated DateTime 3 157.48 cm 35.5 kg/m2 48149.9 2 g 10 20 /min 98.2 [degF] 88 /min 99 % 148/79 mm[Hg] Maira FONSECA - [facility] 3 14:13:47 Social History None recorded. Functional Status Question Answer Note LastModified by Organizat ion Details LastModified Time Do you use any illicit or recreational drugs? No Information not available 12/25/2022 Do you or have you ever used any other forms of tobacco or nicotine? No [email or web address] Information not available 12/25/2022 What is your level of alcohol consumption? None Information not available 12/25/2022 Mental Status None recorded. Family History Nothing Reported. Medical History No medical history recorded. Gynecological HistoryNo gynecological history recorded. Obstetrics History GPAL:G 0 P 0 0 0 0 Immunizations Vaccine Type Date Status Note Provider Nam e and Address Organization Details Recorded Time Influenza, high-dose, quadrivalent, PF 2 completed Maira Cotto null, PA - [facility] 12/25/2022 14:13:53 Influenza, high-dose, quadrivalent, PF 0 completed Maira Cotto null, PA - [facility] 12/25/2022 14:13:53 Influenza, adjuvanted, quadrivalent, PF 1 completed Maira Cotto null, PA - [facility] 12/25/2022 14:13:53 COVID-19, mRNA, LNP-S, PF, 30 mcg/0.3 mL dose 1 completed Maira Cotto null, PA - [facility] 12/25/2022 14:13:53 COVID-19, mRNA, LNP-S, PF, 30 mcg/0.3 mL dose 1 completed Maira Cotto null, PA - [facility] 12/25/2022 14:13:53 COVID-19, mRNA, LNP-S, PF, 30 mcg/0.3 mL dose 1 completed Maira Cotto null, PA - [facility] 12/25/2022 14:13:53 COVID-19, mRNA, LNP-S, bivalent, PF, 30 mcg/0.3 mL dose 2 completed Maira Cotto null, PA - [facility] 12/25/2022 14:13:53 pneumococcal polysaccharide PPV23 4 completed Maira Cotto null, PA - [facility] 12/25/2022 14:13:53 Past Encounters Encounter ID Performer Location Encounter Start Date Encounter Closed Date Diagnosis/Indication Diagnosis SNOMED-CT Code Diagnosis ICD10 Code Diagnosis IMO Codes Diagnosis Note [id number] [address] [place] [address] 12/20/2020 10:44:57 12/20/2020 12:59:38 [id number] Bismark Grover [place] [address] [facility], [place] [address] 12/25/2022 13:21:14 12/25/2022 14:59:27 Swelling of lower leg 095549662 R22.42 Selling and tenderness left lower calf x 1 weekNeeds to be evaluated in the ER to rule out [facility] Health Concerns Section Related Observation LastModified by Organization Detai ls LastModified Time None Recorded Concern Status LastModified by Organization Details LastModified Time None Recorded Advance Directives Directive None Recorded Payers Insurance Date Sequence Insurance Name Policy Number Policy Smith Covered Member ID Smith Member ID Guarantor Name 12/25/2022 1 [facility] (MEDICARE REPLACEMENT HMO) Carla Farmer [id number] Carla Farmer 12/25/2022 2 [place] [employer] Carla Farmer [id number] Carla Farmer OBGyn Episode No OBEpisode recorded.
[2025-09-21 11:25] VITALS: BMI 35.7
--- NOTE | 2025-09-21 11:25 | A.SPINEOV_ITS ---
Vital Signs 09/21/25 11:25 Height 5 ft 2 in Weight 195 lb BMI 35.7 Intake Visit Reasons: LOW BACK PAIN Intake Note: Ms. Farmer is here today c/o low back pain. [place] [facility] Leach Cell Operator Required: No Allergies penicillin V Allergy (Intermediate, Verified 09/21/25 11:26) Rash Sulfa (Sulfonamide Antibiotics) Allergy (Intermediate, Verified 09/21/25 11:26) Rash Tetanus Toxoid Adsorbed Allergy (Unknown, Uncoded 06/14/23 11:00) Unknown Physical Exam Vital Signs: BMI result Body Mass Index 35.7 Assessment & Plan Assessment & Plan (1) Chronic low back pain: Code(s): M54.50 - Low back pain, unspecified; G89.29 - Other chronic pain Category: Medical Plan Dear Vy, Thank you for referring Mrs Farmer to our office today. This is a very nice 80-year-old female history of fibromyalgia, history of scoliosis, had an L1-L5 scoliosis correction done in [place] in 2013 with . At that time she tells me that she was more less paralyzed and unable to walk or move her legs. He told her he could do the surgery and correct the scoliosis but that she would be in chronic pain. She followed up with him maybe once or twice that year in his not seen him since. She has however been dealing with chronic low back pain now for many many years, steadily getting worse. It is aggravated with standing and walking, but it is also present even when she is sitting or lying down. She has MRI showing adjacent segment disease and was referred for an evaluation. Currently she deals with the pain mostly by just tolerating with oxycodone twice a day, ibuprofen as needed. She did undergo a caudal injection that did give her 3 days of excellent relief. The patient has done physical therapy and chiropractic etc.. PMH: Hypertension, TMJ, fibromyalgia, astasia abasia, arthritis, scoliosis, cholecystectomy, appendectomy, mastectomy Social hx: She has not smoke, drink use any recreational drugs Medications: Please see the [facility] list included Allergies: Penicillin, sulfa and tetanus Physical exam: She is a well healed incision in her midline back which is about 16 in in length and another 1 on the left side paraspinal which is about 3 or 4 in in length. She is able to stand up out of a chair, however is not able to get into a full upright position, lower extremity strength testing very limited secondary to effort and pain related weakness. I do not detect any focal motor deficits. Reflexes diminished at the patella and the Achilles. Imaging review: Lumbar MRI done at an outside facility loaded into our imaging system shows that she has hardware from L1-L5 with good correction of scoliosis, there is adjacent segment disease above extending into the thoracic spine as well as at L5-S1. X-rays done at [facility] show evidence of good hardware positioning, what looks like stable fusion from L1-L5. There is adjacent segment disease above her fusion in the lower thoracic segments and T12-L1 as well as at L5-S1. Impression: 80-year-old female history of fibromyalgia, scoliosis correction L1-L5 in 2013. At the time she was paralyzed and unable to walk, but was able to regain function. She was told by the surgeon in [place] that she would be left in chronic pain but that he could fix the issue with her spine. Fortunately, she was able to regain the ability to walk and move. Unfortunately however, his prediction was correct and she has been left in tremendous pain. The pain is aggravated with standing walking but is also present at rest when she is sitting or lying down. 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 She did have a excellent result to a caudal epidural. It lasted for 3 days and felt excellent. The issue here, is that in order to treat the adjacent segment issue at L5-S1, the patient would have to have all of her hardware removed, in order to extend the fusion down to L5-S1. We would be unable to just put a stand-alone cage anteriorly below such a large construct. Therefore, the revision itself may give her more pain than she currently has because of her s urgery. She seems to understand this and when we discussed any potential surgical solution to this, she was very skeptical, and was very concerned that would leave her in more pain. There is no guarantee that revising her or extending her fusion down to L5-S1 would give her the pain relief she is looking for. I think the patient and I are both in agreement that this would be a massive undertaking and without any guarantee of results, it is best just to let things be the way they are for now. If something changes, we would be happy to see her back. Maybe she would be better considered for something like a spinal cord stimulator. Thank you for allowing us to care for your patient. The total time spent with this visit with this patient was 45 minutes reviewing history, physical exam, lumbar imaging review, and implementation of treatment plan or further diagnostic testing Raciel Crane MD,PhD [facility] Coding Level of Care Code New Pt Level 4 (01736) Diagnoses Chronic low back pain M54.50; G89.29
== END 2025-09-21 12:39 | disposition home or self-care (01) ==
LOC: HO.HNS 10:55
PROVIDERS: PCP Internal Medicine; Referring Provider Internal Medicine; Visit Provider Physician Assistant
DX: M54.50 Low back pain, unspecified (principal); G89.29 Other chronic pain
CPT/HCPCS: 99204

== ENCOUNTER → 2025-09-21 10:55 | Outpatient (BNVA) | payer OTHER, SELFPAY | PROVIDERS: PCP Internal Medicine; Referring Provider Internal Medicine; Visit Provider Physician Assistant | DX: M54.50 Low back pain, unspecified (principal); G89.29 Other chronic pain; Z98.890 Other specified postprocedural states; Z87.39 Personal history of other diseases of the musculoskeletal system and connective tissue | CPT/HCPCS: 99202 ==